=== PATIENT | female | born 1990 | race African-American/Black ===

== ENCOUNTER → 2016-05-10 | Outpatient (CLI) | payer OTHER | END | disposition home or self-care (01) | LOC: LABWHC1 10:29 | PROVIDERS: ATTEND Obstetrics & Gynecology | DX: O46.90 Antepartum hemorrhage, unspecified, unspecified trimester (principal) | CPT/HCPCS: 36415; 84702 ==

== ENCOUNTER → 2016-05-12 | Outpatient (CLI) | payer OTHER | END | disposition home or self-care (01) | LOC: LABWHC1 09:38 | PROVIDERS: ATTEND Obstetrics & Gynecology | DX: Z34.91 Encounter for supervision of normal pregnancy, unspecified, first trimester (principal); Z3A.00 Weeks of gestation of pregnancy not specified | CPT/HCPCS: 36415; 84702 ==

== ENCOUNTER → 2016-05-30 | Outpatient (CLI) | payer OTHER ==
--- NOTE | 2016-05-30 12:49 | US ---
EXAMINATION TYPE: US OB <= 14 wk fetus DATE OF EXAM: 05/30/2016 12:22 PM COMPARISON: NONE CLINICAL HISTORY: O46.91 Bleeding in first Trimester. EXAM PERFORMED: Transabdominal (TA) EXAM MEASUREMENTS: GESTATIONAL AGE / DATING Physician Established: not yet established Dates by LMP: ( 6 weeks/2 days) EDC: 04/16/16 Dates by First Scan: 1st scan today Dates by Current Scan for: (6 weeks/2 days) EDC: 04/16/16 MATERNAL ANATOMY Uterus: 9.3 x 6.1 x 5.8 Right Ovary: .3.0 x 2.4 x 2.7cm Left Ovary: 2.1 x 1.6 x 1.8 Post CDS / Adnexa: wnl Presence of free fluid: no GESTATION / CITRUS PICKER IMPRESSION: CRL: 4.5cm (6 weeks/2 days) Yolk Sac (normal less than 6mm): 3mm Heart Rate: 160 bpm Rhythm: Normal IUP: Viable IUP Date of LMP: 04/16/16 Beta HcG (if available): Not available IMPRESSION: 1. Single intrauterine gestation estimated at 6 weeks 2 days gestation. Cardiac activity measures 160 bpm.
== END | disposition home or self-care (01) ==
LOC: RADUSWWP 11:44
PROVIDERS: ATTEND Obstetrics & Gynecology
DX: O46.91 Antepartum hemorrhage, unspecified, first trimester (principal); Z3A.01 Less than 8 weeks gestation of pregnancy
CPT/HCPCS: 76801

== ENCOUNTER → 2017-01-10 | Outpatient (CLI) | payer OTHER | END | disposition home or self-care (01) | LOC: LABWHC1 12:20 | PROVIDERS: ATTEND Obstetrics & Gynecology | DX: Z34.90 Encounter for supervision of normal pregnancy, unspecified, unspecified trimester (principal); Z3A.00 Weeks of gestation of pregnancy not specified | CPT/HCPCS: 36415; 84702 ==

== ENCOUNTER → 2017-02-14 | Outpatient (CLI) | payer OTHER ==
[2017-02-14 10:20] LABS: HCT 42.8 % (34.0-46.0); HDW 2.43; MCHC 32.8 g/dL (31.0-37.0); MCV 97.4 fL (80.0-100.0); Mean Platelet Volume 7.8; RBC 4.39 m/uL (3.80-5.40); RDW 12.3 % (11.5-15.5); WBC 7.3 k/uL (3.8-10.6)
[2017-02-14 10:33] LABS: Glucose 129 mg/dL (74-99); Non-African American GFR(MDRD) >60 (>60 ml/min/1.73 sqM)
--- NOTE | 2017-02-14 11:35 | US ---
EXAMINATION TYPE: US OB <= 14 wk fetus DATE OF EXAM: 02/14/2017 COMPARISON: NONE CLINICAL HISTORY: Z36 CONFIRM DUE DATE. Confirm dates EXAM PERFORMED: Transabdominal (TA) EXAM MEASUREMENTS: GESTATIONAL AGE / DATING Physician Established: (9 weeks/0 days) EDC: 09/19/2017 Dates by LMP: (9 weeks/0 days) EDC: 09/19/2017 Dates by First Scan: This is 1st scan Dates by Current Scan for: ( 9 weeks/3 days) EDC: 09/16/2017 MATERNAL ANATOMY Uterus: 10.3 x 5.6 x 6.6cm, anteverted Right Ovary: 3.7 x 2.5 x 2.8cm Left Ovary: 3.3 x 1.3 x 1.7cm Post CDS / Adnexa: wnl Presence of free fluid: no Presence of corpus luteal cyst: right ovary: 2.3 x 2.0 x 1.7cm cystic area, possible corpus luteum Presence of subchorionic bleed: no GESTATION / SURVEY CRL: 2.6cm (9 weeks/3 days) Yolk Sac (normal less than 6mm): 4.3mm Heart Rate: 167 bpm Rhythm: Normal IUP: Viable IUP Date of LMP: 12/13/2016 Beta HcG (if available): Not available at time of exam Viable single IUP measuring 9 weeks 3 days with a heart rate of 167bpm and an estimated delivery date of 09/16/2017. Single live intrauterine gestation is seen as gestational sac, yolk sac, and pole are identifie d. No free fluid is seen in pelvic cul-de-sac. Both ovaries are identified. Within the right ovary there is 2.3 cm cystic lesion which likely reflec ts corpus luteal cyst. There is no suspicious extraovarian adnexal mass identified bilaterally. IMPRESSION: Single live intrauterine gestation is confirmed, mean crown-rump length is 2.6 cm corresp onding to 9 week 3 day old fetus.
[2017-02-14 15:18] LABS: Treponemal Ab Non-Reactive (Non-Reactive)
== END | disposition home or self-care (01) ==
LOC: RADUSWWP 09:47
PROVIDERS: ATTEND Obstetrics & Gynecology
DX: Z36.9 Encounter for antenatal screening, unspecified (principal); O26.811 Pregnancy related exhaustion and fatigue, first trimester; Z3A.09 9 weeks gestation of pregnancy
CPT/HCPCS: 36415; 76801; 82565; 82947; 85027; 86762; 86780; 86850; 86900; 86901; 87340; 87390

== ENCOUNTER 2017-03-30 23:39 | Emergency (ER) | payer OTHER ==
[2017-03-30 23:48] VITALS: BP 133/71; TEMP 97.8
--- NOTE | 2017-03-31 00:19 | ED ---
Female Urogenital HPI - General Chief complaint: Vaginal Bleeding Stated complaint: 15 weeks preg,vaginal bleeding Time Seen by Provider: 03/30/17 23:47 Source: patient, RN notes reviewed, old records reviewed Mode of arrival: ambulatory Limitations: no limitations - History of Present Illness Initial comments: 27-year-old male presents emergency Department with 1 day of vaginal spotting and bleeding. She reports that she is currently 15 weeks . Patient is a patient. PALLETIZER OPERATOR is Dr. Rowell. She had an appointment earlier this week and had a normal heart rate. Patient reports that she has no significant abdominal pain or cramping. She denies any dysuria or hematuria. Patient denies any recent fever, chills, shortness of breath, chest pain, back pain, abdominal pain, nausea vomiting, numbness or tingling, dysuria or hematuria, constipation or diarrhea, headaches or visual changes, or any other current symptoms - Related Data Home Medications Medication Instructions Recorded Confirmed No Known Home Medications [No 03/30/17 03/30/17 Known Home Medications] Allergies Allergy/AdvReac Type Severity Reaction Status Date / Time No Known Allergies Allergy Verified 03/15/16 10:01 Review of Systems ROS Statement: Those systems with pertinent positive or pertinent negative responses have been documented in the HPI. ROS Other: All systems not noted in ROS Statement are negative. Past Medical History Past Medical History: No Reported History Additional Past Medical History / Comment(s): recent miscarriage History of Any Multi-Drug Resistant Organisms: None Reported Past Surgical History: No Surgical Hx Reported Past Psychological History: ADD/ADHD Smoking Status: Never smoker Past Alcohol Use History: None Reported Past Drug Use History: None Reported General Exam - General Exam Comments Initial Comments: 27-year-old female. No distress. Limitations: no limitations General appearance: alert, in no apparent distress Head exam: Present: atraumatic, normocephalic, normal inspection Eye exam: Present: normal appearance, PERRL, EOMI. Absent: scleral icterus, conjunctival injection, periorbital swelling ENT exam: Present: normal exam, mucous membranes moist Neck exam: Present: normal inspection. Absent: tenderness, meningismus, lymphadenopathy Respiratory exam: Present: normal lung sounds bilaterally. Absent: respiratory distress, wheezes, rales, rhonchi, stridor Cardiovascular Exam: Present: regular rate, normal rhythm, normal heart sounds. Absent: systolic murmur, diastolic murmur, rubs, gallop, clicks GI/Abdominal exam: Present: soft, normal bowel sounds. Absent: distended, tenderness, guarding, rebound, rigid Speculum exam: Present: normal speculum exam, vaginal bleeding (Minimal vaginal bleeding noted.). Absent: vaginal discharge, cervical discharge By manual exam: Present: normal by manual exam. Absent: cervical motion tenderness, adnexal tenderness Extremities exam: Present: normal inspection, full ROM, normal capillary refill. Absent: tenderness, pedal edema, joint swelling, calf tenderness Course Vital Signs 03/30/17 03/31/17 23:44 02:29 Temperature 97.8 F Pulse Rate 114 H 100 Respiratory 20 18 Rate Blood Pressure 133/71 O2 Sat by Pulse 100 98 Oximetry Medical Decision Making - Medical Decision Making 27-year-old female that states she is 15 weeks presents emergency Department chief complaint of 1 day of vaginal bleeding. She reports she had some mild spotting. Denies any trauma or intercourse to cause this. She states that she's had a minor amount of discharge. Denies any dysuria or hematuria. Denies any significant abdominal cramping. She does have scant amount of bleeding noted, cervix is closed mucous plug noted. Patient is O+ blood type. HCG is 20,000. Patient was informed of all these results. Her ultrasound was also reviewed and shows a viable IUP measuring 16 weeks and 1 day. At this time discussed the patient could likely be having a threatened miscarriage. Discussed the importance of following up with 2 days of her lab work rechecked and checking her hCG level. Discussed close follow-up with primary care provider as well and return parameters including increased pain were discussed. Patient understands treatment plan will comply. - Lab Data Result diagrams: 03/31/17 00:30 Lab Results 03/31/17 03/31/17 03/31/17 Range/Units 00:30 00:30 00:30 WBC 8.5 (3.8-10.6) k/uL RBC 4.35 (3.80-5.40) m/uL Hgb 13.5 (11.4-16.0) gm/dL Hct 39.9 (34.0-46.0) % MCV 91.8 D (80.0-100.0) fL MCH 31.0 (25.0-35.0) pg MCHC 33.7 (31.0-37.0) g/dL RDW 12.1 (11.5-15.5) % Plt Count 193 (150-450) k/uL Neutrophils % 65 % Lymphocytes % 25 % Monocytes % 4 % Eosinophils % 3 % Basophils % 0 % Neutrophils # 5.6 (1.3-7.7) k/uL Lymphocytes # 2.2 (1.0-4.8) k/uL Monocytes # 0.4 (0-1.0) k/uL Eosinophils # 0.3 (0-0.7) k/uL Basophils # 0.0 (0-0.2) k/uL HCG, Quant mIU/mL Urine Color Light Yellow Urine Appearance Cloudy H (Clear) Urine pH 5.5 (5.0-8.0) Ur Specific Sarita 1.007 (1.001-1.035) Urine Protein Negative (Negative) Urine Glucose (UA) Negative (Negative) Urine Ketones Negative (Negative) Urine Blood Moderate H (Negative) Urine Nitrite Negative (Negative) Urine Bilirubin Negative (Negative) Urine Urobilinogen <2.0 (<2.0) mg/dL Ur Leukocyte Esterase Small H (Negative) Urine RBC <1 (0-5) /hpf Urine WBC 1 (0-5) /hpf Ur Squamous Epith Cells 3 (0-4) /hpf Trichomonas Ag (Rapid) (Negative) Blood Type O Positive Blood Type Recheck No Antibody Screen NEGATIVE Spec Expiration Date 04/03/2017 - 232903/31/17 03/31/17 Range/Units 00:30 00:30 WBC (3.8-10.6) k/uL RBC (3.80-5.40) m/uL Hgb (11.4-16.0) gm/dL Hct (34.0-46.0) % MCV (80.0-100.0) fL MCH (25.0-35.0) pg MCHC (31.0-37.0) g/dL RDW (11.5-15.5) % Plt Count (150-450) k/uL Neutrophils % % Lymphocytes % % Monocytes % % Eosinophils % % Basophils % % Neutrophils # (1.3-7.7) k/uL Lymphocytes # (1.0-4.8) k/uL Monocytes # (0-1.0) k/uL Eosinophils # (0-0.7) k/uL Basophils # (0-0.2) k/uL HCG, Quant 70259.8 mIU/mL Urine Color Urine Appearance (Clear) Urine pH (5.0-8.0) Ur Specific Sarita (1.001-1.035) Urine Protein (Negative) Urine Glucose (UA) (Negative) Urine Ketones (Negative) Urine Blood (Negative) Urine Nitrite (Negative) Urine Bilirubin (Negative) Urine Urobilinogen (<2.0) mg/dL Ur Leukocyte Esterase (Negative) Urine RBC (0-5) /hpf Urine WBC (0-5) /hpf Ur Squamous Epith Cells (0-4) /hpf Trichomonas Ag (Rapid) Negative (Negative) Blood Type Blood Type Recheck Antibody Screen Spec Expiration Date - Radiology Data Radiology results: report reviewed Ultrasound shows single viable IUP measuring 16 weeks and 1 day. Disposition Clinical Impression: Vaginal bleeding in Disposition: HOME SELF-CARE Condition: Good Instructions: Threatened Miscarriage (ED) Additional Instructions: Patient is to follow-up with outpatient lab today her blood work redrawn in 2 days. Follow-up with PALLETIZER OPERATOR. Return to emergency department if any alarming signs or symptoms occur. Recommended pelvic rest, no intercourse or severe heavy lifting or any other strenuous activity until cleared by PALLETIZER OPERATOR. Referrals: None,Stated [Primary Care Provider] - 1-2 days Ingris Rowell DO [Doctor of Osteopathic Medicine] - 1-2 days Time of Disposition: 01:53
[2017-03-31 00:52] LABS: Appearance,Urine Cloudy (Clear); Bilirubin,Urine Negative (Negative); Glucose,Urine (UA) Negative (Negative); Ketones,Urine Negative (Negative); Leukocyte Esterase,Urine Small (Negative); Nitrite,Urine Negative (Negative); PH, Urine 5.5 (5.0-8.0); Particle Count 5331; Protein,Urine Negative (Negative); RBC,Urine <1 /hpf (0-5); Specific Gravity,Urine 1.007 (1.001-1.035); Squamous Epithelial Cell,Urine 3 /hpf (0-4); UA Billing (MACRO vs. MICRO) MICRO; Urobilinogen,Urine <2.0 mg/dL (<2.0); WBC,Urine 1 /hpf (0-5)
[2017-03-31 00:57] LABS: Basophils % (A) 0 %; CH 32.2; CHCM 35.2; Eosinophils # (A) 0.3 k/uL (0-0.7); Eosinophils % (A) 3 %; HCT 39.9 % (34.0-46.0); HDW 2.71; HGB 13.5 gm/dL (11.4-16.0); Luc # (Auto) 0.16; Luc % (Auto) 2; Lymphocytes # (A) 2.2 k/uL (1.0-4.8); Lymphocytes % (A) 25 %; MCHC 33.7 g/dL (31.0-37.0); Mean Platelet Volume 7.9; Monocytes # (A) 0.4 k/uL (0-1.0); Monocytes % (A) 4 %; Neutrophils # (A) 5.6 k/uL (1.3-7.7); Neutrophils % (A) 65 %; RBC 4.35 m/uL (3.80-5.40); RDW 12.1 % (11.5-15.5); WBC 8.5 k/uL (3.8-10.6); WBC (Perox) 8.89
[2017-03-31 00:58] LABS: MCV 91.8 fL (80.0-100.0)
--- NOTE | 2017-03-31 01:37 | US ---
EXAM: US After First Trimester, Transabdominal US , Transvaginal CLINICAL HISTORY: Reason: Pain TECHNIQUE: Real-time transabdominal and endovaginal obstetrical ultrasound of the maternal pelvis and a second or third trimester with image documentation. Endovaginal imaging was used for better evaluation of the fetus and adnexa. COMPARISON: 02/14/2017 FINDINGS: Fetus: No acute findings, were visualized.. Limited characterization of the anatomy at this gestational age. Heart rate: heart rate 149 bpm. Presentation: presentation breech. Placenta: Placenta fundal anterior. No focal abnormality identified on the provided images. No abruption. Amniotic fluid: Amniotic fluid index 10.5 cm. Anatomy: Intracranial/face anatomy not seen. Spinal anatomy not seen. Abdominal anatomy not seen. Extremities not seen. Four-chamber heart not seen. Umbilical cord not seen. BIOMETRICS Gestational age by US: EFW: Estimated weight is grams 136.7. 0 lbs. 5 oz. BPD: Biparietal diameter 3.3 cm. HC: Head circumference 11.9 cm. AC: Abdominal circumference 9.8 cm. FL: Femur length 1.9 cm. MATERNAL: Uterus: Unremarkable. No myometrial mass. Cervix: Cervical length over 3 cm and closed. Free fluid: No free fluid. IMPRESSION: Live intrauterine gestation with estimated gestational age 16 weeks 1 day by ultrasound. No acute sonographic abnormalities identified.
[2017-03-31 02:30] VITALS: PULSE 100; RESP 18
== END 2017-03-31 02:29 | disposition home or self-care (01) ==
LOC: EC 23:39
DX: O20.9 Hemorrhage in early pregnancy, unspecified (principal); Z3A.16 16 weeks gestation of pregnancy
CPT/HCPCS: 36415; 76805; 76817; 81001; 84702; 85025; 86850; 86900; 86901; 87070; 87205; 87491; 87591; 87808; 99284

== ENCOUNTER → 2017-04-03 | Outpatient (CLI) | payer OTHER | END | disposition home or self-care (01) | LOC: LABWHC1 11:03 | PROVIDERS: ATTEND Physician Assistant Medical | DX: O20.0 Threatened abortion (principal) | CPT/HCPCS: 36415; 84702 ==

== ENCOUNTER → 2017-06-14 | Outpatient (CLI) | payer OTHER ==
[2017-06-14 09:18] LABS: HCT 37.9 % (34.0-46.0); HGB 12.6 gm/dL (11.4-16.0); MCH 31.6 pg (25.0-35.0); MCHC 33.2 g/dL (31.0-37.0); MCV 95.2 fL (80.0-100.0); Mean Platelet Volume 8.9; Platelet Count 190 k/uL (150-450); RBC 3.99 m/uL (3.80-5.40); RDW 13.2 % (11.5-15.5); WBC 8.9 k/uL (3.8-10.6)
== END | disposition home or self-care (01) ==
LOC: LABWHC1 07:52
PROVIDERS: ATTEND Obstetrics & Gynecology
DX: Z34.82 Encounter for supervision of other normal pregnancy, second trimester (principal); Z3A.00 Weeks of gestation of pregnancy not specified
CPT/HCPCS: 36415; 82950; 85027

== ENCOUNTER 2017-08-25 04:45 | Outpatient (CLI) | payer OTHER ==
[2017-08-25 05:22] VITALS: BP 125/65; PULSE 115; RESP 16; TEMP 97.6
--- NOTE | 2017-09-02 06:15 | P.MSEPDOC ---
Presenting Problems - Arrival Data Date of Arrival on Unit: 08/25/17 Time of Arrival on Unit: 04:47 Mode of Transport: Wheelchair - Complaint OB-Reason for Admission/Chief Complaint: Possible Onset of Labor Comment: pt states she has been fela on and off over the last day. states they are now 4-5 minutes apart and rates them 8/10 Medical History - Information : 4 Para: 1 Term: 1 : 0 Abortions: Spontaneous or Elective: 0 Number of Living Children: 1 - Gestational Age Gestational Age by RUTH (wks/days): 36 Weeks and 3 Days - History Complications: GDM Review of Systems - Review of Systems Constitutional: No problems Breast: No problems ENT: No problems Cardiovascular: No problems Respiratory: No problems Gastrointestinal: No problems Genitourinary: No problems Musculoskeletal: No problems Neurological: No problems Skin: No problems Vital Signs - Temperature Temperature: 97.6 F Temperature Source: Temporal Artery Scan - Pulse Right Sitting Brachial Pulse Rate: 115 Pulse Assessment Method: Automatic Cuff - Respirations Respiratory Rate: 16 Oxygen Delivery Method: Room Air O2 Sat by Pulse Oximetry: 100 - Blood Pressure Right Arm Sitting Blood Pressure: 125/65 Blood Pressure Mean: 85 Blood Pressure Source: Automatic Cuff Medical Screen Scoring (Pre) - Cervical Exam Dilation: 1-3 cm = 1 Effacement: More than 50% = 2 Membranes: Intact - Uterine Contractions Frequency: > 5 minutes apart = 1 Duration: > 40 seconds = 2 Intensity: N/A - Maternal Vital Signs Maternal Temperature: N/A Maternal Blood Pressure: N/A Signs of Preeclampsia: N/A - Pain Assessment Pain Location and Character: Lower, Abdomen Pain Scale Used: Numeric (1 - 10) Pain Intensity: 8 Pain Management Goal: 3 Pain Description: *Acute, Cramping Pain Radiation Location: lower back Pain Frequency: Intermittent Pain Duration: 1 Pain Duration Units: Days Pain Behavior: Facial Grimacing, Vocalization - Assessment Baseline FHR: 140 Heart Rate - NICHD Category: Category I (Normal) = 0 NST: Reactive - Total Score Total Score (Pre): 6 - Level of Risk Level of Risk: Medium (6-9) Physician Notification (Post) - Physician Notified Physician Notified Date: 08/25/17 Physician Notified Time: 06:11 Physician/Practitioner Notified:: natalie Spoke With: natalie New Order Received: Yes - Notification Comment Comment: d/c pt home, instruct pt to keep apt this morning with dr moncada Disposition - Disposition OB Disposition: Discharge to home Discharge Date: 08/25/17 Discharge Time: 06:20 I agree with the RN Medical Screening Exam: Yes Risk & Benefit of care provided described in d/c instruction: Yes Diagnosis: FALSE LABOR BEFORE 37 COMPLETED WEEKS OF GEST, THIRD TRI
== END 2017-08-25 06:20 | disposition home or self-care (01) ==
LOC: FBPOP 04:45
PROVIDERS: ATTEND Obstetrics & Gynecology
DX: O99.89 Other specified diseases and conditions complicating pregnancy, childbirth and the puerperium (principal); O47.03 False labor before 37 completed weeks of gestation, third trimester; Z3A.36 36 weeks gestation of pregnancy
CPT/HCPCS: 59025; G0463; 99213

== ENCOUNTER 2017-09-14 06:00 | Inpatient (IN) | payer OTHER ==
[2017-09-14] MEDS ORDERED: METHYLERGONOVINE 0.2 MG/ML 1 ML AMP IM PRN (06:29)
[2017-09-14] MEDS ORDERED: LIDOCAINE 1% (PF) 10 MG/ML (30 ML SDV) SQ PRN (06:29)
[2017-09-14] MEDS ORDERED: AMPICILLIN 2,000 MG in SODIUM CHLORIDE 0.9% 100 ML IVPB STA (06:29)
[2017-09-14] MEDS ORDERED: TERBUTALINE 1 MG/ML VIAL SQ PRN (06:29)
[2017-09-14] MEDS ORDERED: OXYTOCIN 10 UNIT/ML 1 ML VIAL IM PRN (06:29)
[2017-09-14] MEDS ORDERED: CARBOPROST TROMETHAMINE 250 MCG/ML 1 ML AMP IM PRN (06:29)
[2017-09-14] MEDS ORDERED: OXYTOCIN 20 UNITS/1000 ML NS 1,000 ML IV SCH (06:30)
[2017-09-14 06:39] VITALS: BMI 37.3
[2017-09-14] MEDS: LACTATED RINGERS 1,000 ML IV SCH (06:44)
[2017-09-14 06:50] LABS: Glucose,Whole Blood 77 mg/dL (75-99)
[2017-09-14 06:51] LABS: Basophils % (A) 0 %; Eosinophils # (A) 0.2 k/uL (0-0.7); Eosinophils % (A) 2 %; HCT 38.2 % (34.0-46.0); HGB 13.1 gm/dL (11.4-16.0); Lymphocytes # (A) 2.4 k/uL (1.0-4.8); Lymphocytes % (A) 29 %; MCH 30.8 pg (25.0-35.0); MCHC 34.4 g/dL (31.0-37.0); MCV 89.6 fL (80.0-100.0); Mean Platelet Volume 9.5; Monocytes # (A) 0.4 k/uL (0-1.0); Monocytes % (A) 6 %; Neutrophils # (A) 4.9 k/uL (1.3-7.7); Neutrophils % (A) 61 %; Platelet Count 194 k/uL (150-450); RBC 4.27 m/uL (3.80-5.40); RDW 13.4 % (11.5-15.5)
--- NOTE | 2017-09-14 08:05 | P.HPOB ---
History of Present Illness H&P Date: 09/14/17 Chief Complaint: Induction of Labor 27-year-old presents at 39 weeks and 1 day for induction of labor. Her cervix is 3-4 cm dilated, 80% effaced, -2 station. She is fela irregularly. heart tones are 145-150 with moderate variability and reactive. She does have gestational diabetes and her sugar this morning was 77. Review of Systems All systems: negative Constitutional: Denies chills, Denies fever Eyes: denies blurred vision, denies pain Ears, nose, mouth and throat: Denies headache, Denies sore throat Cardiovascular: Denies chest pain, Denies shortness of breath Respiratory: Denies cough Gastrointestinal: Denies abdominal pain, Denies diarrhea, Denies nausea, Denies vomiting Genitourinary: Denies dysuria, Denies hematuria Musculoskeletal: Denies myalgias Integumentary: Denies pruritus, Denies rash Neurological: Denies numbness, Denies weakness Psychiatric: Denies anxiety, Denies depression Endocrine: Denies fatigue, Denies weight change Past Medical History Past Medical History: No Reported History Additional Past Medical History / Comment(s): Obstetric History: She has had one vaginal delivery 5 lbs. 8 oz., 2 elective terminations, this is her fourth . She's had care with me since 7 weeks gestation. Blood type is O+, antibodies negative, rubella immune, treponema antibody negative, HIV nonreactive, hepatitis B negative. Abnormal 1 hour, she refused to do the 3 hour so she checks her blood sugar for 2 weeks and they were not within normal limits when she went to the maternal medicine the diagnosed with gestational diabetes and had her checking her blood sugars and following a diet. She was GBS positive. NSTs have been reactive. Baby was measuring in the 50th percentile at 35 weeks. History of Any Multi-Drug Resistant Organisms: None Reported Past Surgical History: No Surgical Hx Reported Past Anesthesia/Blood Transfusion Reactions: No Reported Reaction Past Psychological History: ADD/ADHD Smoking Status: Never smoker Past Alcohol Use History: None Reported Past Drug Use History: None Reported - Past Family History Father Family Medical History: Diabetes Mellitus Mother Family Medical History: Asthma, Blood Disorder, Hypertension Medications and Allergies Home Medications Medication Instructions Recorded Confirmed Type No Known Home Medications [No 03/30/17 09/14/17 History Known Home Medications] Allergies Allergy/AdvReac Type Severity Reaction Status Date / Time No Known Allergies Allergy Verified 09/14/17 06:29 Exam Osteopathic Statement: *. No significant issues noted on an osteopathic structural exam other than those noted in the History and Physical/Consult. - Vital Signs Vital signs: Vital Signs Temp Pulse Resp BP 09/14/17 06:32 96.2 F L 115 H 16 142/82 Intake and Output 09/13/17 09/14/17 09/14/17 22:59 06:59 14:59 Other: Weight 92.533 kg Heart: Regular rate and rhythm Lungs: Clear to auscultation bilaterally Abdomen: Soft, nontender Extremities: Negative Homans sign Results Result Diagrams: 09/14/17 06:25 Assessment and Plan (1) Normal labor Current Visit: Yes Status: Acute Code(s): O80 - ENCOUNTER FOR FULL-TERM UNCOMPLICATED DELIVERY; Z37.9 - OUTCOME OF DELIVERY, UNSPECIFIED SNOMED Code(s ): 26433140 (2) Gestational diabetes mellitus, class A1 Current Visit: Yes Status: Acute Code(s): O24.410 - GESTATIONAL DIABETES MELLITUS IN , DIET CONTROLLED SNOMED Code(s): 73250407 Plan: 1. Admit to family place 2. Induction of labor with amniotomy and Pitocin 3. Monitor blood sugars 4. Anticipate normal vaginal delivery
[2017-09-14 08:51] LABS: Glucose,Whole Blood 79 mg/dL (75-99)
[2017-09-14] MEDS ORDERED: SODIUM CHLORIDE 0.9% 100 ML BAG ONE (08:56)
[2017-09-14] MEDS ORDERED: BUPIVACAINE (PF) 0.25% 30 ML VIAL ONE (08:56)
[2017-09-14] MEDS ORDERED: fentaNYL (PF) 50 MCG/ML 5 ML AMP ONE (08:56)
[2017-09-14 09:54] LABS: Glucose,Whole Blood 67 mg/dL (75-99)
[2017-09-14] MEDS ORDERED: AMPICILLIN 1,000 MG in SODIUM CHLORIDE 0.9% 50 ML IVPB SCH (11:00)
[2017-09-14] MEDS ORDERED: BUPIVACAINE (PF) 0.25% 25 ML, fentaNYL (PF) 200 MCG in SODIUM CHLORIDE 0.9% 71 ML EPIDURAL ONE (12:05)
[2017-09-14] MEDS ORDERED: ZOLPIDEM 5 MG TAB PO PRN (17:46)
[2017-09-14] MEDS ORDERED: ACETAMINOPHEN TAB 325 MG TAB PO PRN (17:46)
[2017-09-14] MEDS ORDERED: LANOLIN CREAM 5 GM TUBE TOPICAL PRN (17:46)
[2017-09-14] MEDS ORDERED: diphenhydrAMINE 50 MG CAP PO PRN (17:46)
[2017-09-14] MEDS ORDERED: BENZOCAINE/MENTHOL SPRAY 1 GM/SPRAY AEROSOL TOPICAL PRN (17:46)
[2017-09-14] MEDS ORDERED: diphenhydrAMINE 25 MG CAP PO PRN (17:46)
[2017-09-14] MEDS ORDERED: HYDROCORTISONE 2.5% RECTAL CREAM 30 GM TUBE RECTAL PRN (17:46)
[2017-09-14] MEDS ORDERED: SIMETHICONE 80 MG CHEWABLE PO PRN (17:46)
[2017-09-14] MEDS ORDERED: WITCH HAZEL 1 EACH MED..PAD TOPICAL PRN (17:46)
[2017-09-14] MEDS: IBUPROFEN 600 MG TAB PO PRN (18:27)
[2017-09-14] MEDS: SENNOSIDES-DOCUSATE SODIUM 1 EACH TAB PO SCH (20:15)
[2017-09-15] MEDS: IBUPROFEN 600 MG TAB PO PRN ×4 (00:48→18:45)
--- NOTE | 2017-09-15 08:11 | P.PROBDLV ---
Vaginal Delivery Note - . Vaginal Delivery Note: 27-year-old presented at 39 weeks and 1 day for induction of labor. She was 3 cm dilated, 80% effaced, -2 station. Gabby irregularly. heart tones 140-145 with moderate variability and reactive. Amniotomy was performed at 7:50 AM and clear fluid noted. Pitocin 100 and started. Soon after this she did get an epidural. Her cervix completed dilated at 10:24 AM. She pushed, delivered a viable female over intact perineum under epidural anesthesia at 10:32 AM. Head delivered OA, nuchal cord 1 easily reduced, anterior shoulder delivered with gentle downward traction followed by posterior shoulder and rest of body. Nose and mouth bulb suctioned, cord clamped and cut, infant placed on mother's abdomen. Apgars 9, 9, weight 6 lbs. 6 oz. Placenta delivered spontaneously, intact with three-vessel cord. Vagina , cervix, perineum were inspected. First-degree midline laceration was repaired with 3-0 Vicryl. Estimated blood loss 150 mL.
[2017-09-15] MEDS: LACTATED RINGERS 1,000 ML IV SCH (10:32)
[2017-09-15] MEDS: SENNOSIDES-DOCUSATE SODIUM 1 EACH TAB PO SCH ×2 (10:34→21:23)
--- NOTE | 2017-09-15 16:48 | P.PNOBGVD ---
Subjective - Subjective Principal diagnosis: S/P NVD PPD #1 Interval history: Pt seen and examined. Denies N/V, F/C, CP, SOB or calf pain. Patient reports: Reports appetite normal, Reports voiding normally, Reports pain well controlled, Reports ambulating normally : doing well Objective - Latest Vital Signs Latest vital signs: Vital Signs Temp Pulse Pulse Resp BP 09/15/17 15:40 97.8 F 96 16 124/76 09/15/17 07:52 97.7 F 84 16 139/75 09/14/17 20:00 98.8 F 84 18 121/62 09/14/17 17:00 98.6 F 97 20 129/64 Intake and Output 09/15/17 09/15/17 09/15/17 06:59 14:59 22:59 Other: # Voids 4 - Exam Lungs: bilateral: normal Chest: Normal S1, Normal S2 Extremities: Present: normal Abdomen: Present: normal appearance, soft Uterus: Present: normal, firm Assessment and Plan (1) Normal labor Current Visit: Yes Status: Resolved Code(s): O80 - ENCOUNTER FOR FULL-TERM UNCOMPLICATED DELIVERY; Z37.9 - OUTCOME OF DELIVERY, UNSPECIFIED SNOMED Code(s ): 25094620 (2) Gestational diabetes mellitus, class A1 Current Visit: Yes Status: Resolved Code(s): O24.410 - GESTATIONAL DIABETES MELLITUS IN , DIET CONTROLLED SNOMED Code(s): 91177874 (3) Normal vaginal delivery Current Visit: Yes Status: Acute Code(s): O80 - ENCOUNTER FOR FULL-TERM UNCOMPLICATED DELIVERY SNOMED Code(s): 97281391 Plan: 1. cont pp care
[2017-09-16] MEDS: IBUPROFEN 600 MG TAB PO PRN ×2 (00:42→08:38)
[2017-09-16] MEDS: SENNOSIDES-DOCUSATE SODIUM 1 EACH TAB PO SCH (08:40)
[2017-09-16 08:50] VITALS: BP 122/77; PULSE 90; RESP 18; TEMP 97.4
--- NOTE | 2017-09-16 11:37 | P.DS ---
Providers Date of admission: 09/14/17 06:06 Expected date of discharge: 09/16/17 Attending physician: Ingris Rowell Primary care physician: Stated None - Discharge Diagnosis(es) (1) Normal labor Current Visit: Yes Status: Resolved (2) Gestational diabetes mellitus, class A1 Current Visit: Yes Status: Resolved (3) Normal vaginal delivery Current Visit: Yes Status: Acute Hospital Course: Patient presented for induction of labor. She underwent a normal vaginal delivery. Her course was uncomplicated. She will be discharged home day #2 in stable condition to follow-up with me in 6 weeks. Plan - Discharge Summary New Discharge Prescriptions: New Ibuprofen 800 mg PO Q8H PRN #60 tablet PRN Reason: Pain Discharge Medication List Ibuprofen 800 mg PO Q8H PRN #60 tablet 09/15/17 [Rx] Follow up Appointment(s)/Referral(s): Ingris Rowell DO [Doctor of Osteopathic Medicine] - 6 Weeks Discharge Disposition: HOME SELF-CARE
== END 2017-09-16 14:37 | disposition home or self-care (01) | DRG 775 ==
LOC: 4FBP 06:06
PROVIDERS: ADMIT Obstetrics & Gynecology; ATTEND Obstetrics & Gynecology
PROC: 10E0XZZ Delivery of Products of Conception, External Approach (ICD-10-PCS; principal; 2017-09-14)
PROC: 0HQ9XZZ Repair Perineum Skin, External Approach (ICD-10-PCS; 2017-09-14)
PROC: 10907ZC Drainage of Amniotic Fluid, Therapeutic from Products of Conception, Via Natural or Artificial Opening (ICD-10-PCS; 2017-09-14)
PROC: 3E033VJ Introduction of Other Hormone into Peripheral Vein, Percutaneous Approach (ICD-10-PCS; 2017-09-14)
DX: O24.420 Gestational diabetes mellitus in childbirth, diet controlled (principal); O70.0 First degree perineal laceration during delivery; O69.81X0 Labor and delivery complicated by cord around neck, without compression, not applicable or unspecified; O99.824 Streptococcus B carrier state complicating childbirth; Z3A.39 39 weeks gestation of pregnancy; Z83.3 Family history of diabetes mellitus; Z37.0 Single live birth; Z82.5 Family history of asthma and other chronic lower respiratory diseases; Z82.49 Family history of ischemic heart disease and other diseases of the circulatory system
CPT/HCPCS: 85025; 88307

== ENCOUNTER 2018-07-12 14:49 | Emergency (ER) | payer OTHER ==
[2018-07-12] MEDS ORDERED: ACETAMINOPHEN TAB 325 MG TAB PO STA (15:12)
[2018-07-12] MEDS ORDERED: SODIUM CHLORIDE 0.9% 1,000 ML IV STA (15:12)
--- NOTE | 2018-07-12 15:51 | ED ---
General Adult HPI - General Chief complaint: Recheck/Abnormal Lab/Rx Stated complaint: Weakness, hypertension Time Seen by Provider: 07/12/18 14:59 Source: patient, RN notes reviewed, old records reviewed Mode of arrival: ambulatory Limitations: no limitations - History of Present Illness Initial comments: 28-year-old female presented for evaluation of flulike symptoms, concern for dehydration. Patient was diagnosed by nasal swab with influenza a 2 days ago. She had several days of symptoms preceding this diagnosis. She was prescribed Tamiflu but had some difficulty with nausea vomiting after taking this medication so she did not complete her course. She has had decreased appetite, decreased oral intake. She is also had mild cough and chest pain associated with her cough. Denies current fever or chills. Denies abdominal pain nausea or vomiting denies dysuria or hematuria. - Related Data Previous Rx's Medication Instructions Recorded Ibuprofen 800 mg PO Q8H PRN #60 tablet 09/15/17 Allergies Allergy/AdvReac Type Severity Reaction Status Date / Time No Known Allergies Allergy Verified 07/12/18 16:41 Review of Systems ROS Statement: Those systems with pertinent positive or pertinent negative responses have been documented in the HPI. ROS Other: All systems not noted in ROS Statement are negative. Past Medical History Past Medical History: No Reported History Additional Past Medical History / Comment(s): Obstetric History: She has had one vaginal delivery 5 lbs. 8 oz., 2 elective terminations, this is her fourth . She's had care with me since 7 weeks gestation. Blood type is O+, antibodies negative, rubella immune, treponema antibody negative, HIV nonreactive, hepatitis B negative. Abnormal 1 hour, she refused to do the 3 hour so she checks her blood sugar for 2 weeks and they were not within normal limits when she went to the maternal medicine the diagnosed with gestational diabetes and had her checking her blood sugars and following a diet. She was GBS positive. NSTs have been reactive. Baby was measuring in the 50th percentile at 35 weeks. History of Any Multi-Drug Resistant Organisms: None Reported Past Surgical History: No Surgical Hx Reported Past Anesthesia/Blood Transfusion Reactions: No Reported Reaction Past Psychological History: ADD/ADHD Smoking Status: Never smoker Past Alcohol Use History: None Reported Past Drug Use History: None Reported - Past Family History Father Family Medical History: Diabetes Mellitus Mother Family Medical History: Asthma, Blood Disorder, Hypertension General Exam Limitations: no limitations General appearance: alert, in no apparent distress Head exam: Present: atraumatic, normocephalic Eye exam: Present: normal appearance, PERRL ENT exam: Present: mucous membranes dry Neck exam: Present: normal inspection. Absent: tenderness, meningismus Respiratory exam: Present: normal lung sounds bilaterally. Absent: respiratory distress, wheezes Cardiovascular Exam: Present: regular rate, normal rhythm GI/Abdominal exam: Present: soft. Absent: distended, tenderness Extremities exam: Present: normal inspection, normal capillary refill Neurological exam: Present: alert, oriented X3, CN II-XII intact. Absent: motor sensory deficit Psychiatric exam: Present: normal affect, normal mood Skin exam: Present: warm, dry, intact. Absent: cyanosis, diaphoretic Course Vital Signs 07/12/18 07/12/18 14:53 15:38 Temperature 98.2 F Pulse Rate 97 Respiratory 18 20 Rate Blood Pressure 115/69 O2 Sat by Pulse 100 Oximetry Medical Decision Making - Medical Decision Making 28-year-old female recent diagnosis of influenza presenting with dehydration, decreased appetite, flulike symptoms. Workup in the emergency department reveals normal chest x-ray, negative for focal pneumonia, she does have some leukopenia with total white blood cell count 2.5 likely viral but will require repeat testing. Hemoglobin 16.2 lactic acid normal, normal electrolytes. Mild transaminitis with AST 48, ALT 67, may be viral in nature, or may be secondary to patient large consumption of-" syrup and possible fatty liver. Urinalysis negative for infection, does show 1+ ketones. Patient receives Tylenol, 2 L of IV hydration, on reevaluation she is feeling better. She will follow-up with her primary care physician regarding repeat laboratory testing - Lab Data Result diagrams: 07/12/18 15:30 07/12/18 15:30 Lab Results 07/12/18 07/12/18 07/12/18 Range/Units 15:30 15:30 15:30 WBC 2.5 L (3.8-10.6) k/uL RBC 5.24 (3.80-5.40) m/uL Hgb 16.2 H (11.4-16.0) gm/dL Hct 49.5 H (34.0-46.0) % MCV 94.4 (80.0-100.0) fL MCH 30.8 (25.0-35.0) pg MCHC 32.6 (31.0-37.0) g/dL RDW 12.5 (11.5-15.5) % Plt Count 234 (150-450) k/uL Neutrophils % 46 % Lymphocytes % 35 % Monocytes % 12 % Eosinophils % 4 % Basophils % 1 % Neutrophils # 1.2 L (1.3-7.7) k/uL Lymphocytes # 0.9 L (1.0-4.8) k/uL Monocytes # 0.3 (0-1.0) k/uL Eosinophils # 0.1 (0-0.7) k/uL Basophils # 0.0 (0-0.2) k/uL Sodium 141 (137-145) mmol/L Potassium 4.0 (3.5-5.1) mmol/L Chloride 107 (98-107) mmol/L Carbon Dioxide 21 L (22-30) mmol/L Anion Gap 13 mmol/L BUN 8 (7-17) mg/dL Creatinine 0.90 (0.52-1.04) mg/dL Est GFR (CKD-EPI)AfAm >90 (>60 ml/min/1.73 sqM) Est GFR (CKD-EPI)NonAf 89 (>60 ml/min/1.73 sqM) Glucose 91 (74-99) mg/dL Plasma Lactic Acid Dannie 1.3 (0.7-2.0) mmol/L Calcium 9.6 (8.4-10.2) mg/dL Total Bilirubin 0.6 (0.2-1.3) mg/dL AST 48 H (14-36) U/L ALT 67 H (9-52) U/L Alkaline Phosphatase 77 (38-126) U/L Total Protein 8.7 H (6.3-8.2) g/dL Albumin 4.8 (3.5-5.0) g/dL Urine Color Urine Appearance (Clear) Urine pH (5.0-8.0) Ur Specific [place] (1.001-1.035) Urine Protein (Negative) Urine Glucose (UA) (Negative) Urine Ketones (Negative) Urine Blood (Negative) Urine Nitrite (Negative) Urine Bilirubin (Negative) Urine Urobilinogen (<2.0) mg/dL Ur Leukocyte Esterase (Negative) Urine RBC (0-5) /hpf Urine WBC (0-5) /hpf Ur Squamous Epith Cells (0-4) /hpf Amorphous Sediment (None) /hpf Hyaline Casts (0-2) /lpf Urine Mucus (None) /hpf Urine HCG, Qual (Not Detectd) 07/12/18 07/12/18 Range/Units 15:30 15:30 WBC (3.8-10.6) k/uL RBC (3.80-5.40) m/uL Hgb (11.4-16.0) gm/dL Hct (34.0-46.0) % MCV (80.0-100.0) fL MCH (25.0-35.0) pg MCHC (31.0-37.0) g/dL RDW (11.5-15.5) % Plt Count (150-450) k/uL Neutrophils % % Lymphocytes % % Monocytes % % Eosinophils % % Basophils % % Neutrophils # (1.3-7.7) k/uL Lymphocytes # (1.0-4.8) k/uL Monocytes # (0-1.0) k/uL Eosinophils # (0-0.7) k/uL Basophils # (0-0.2) k/uL Sodium (137-145) mmol/L Potassium (3.5-5.1) mmol/L Chloride (98-107) mmol/L Carbon Dioxide (22-30) mmol/L Anion Gap mmol/L BUN (7-17) mg/dL Creatinine (0.52-1.04) mg/dL Est GFR (CKD-EPI)AfAm (>60 ml/min/1.73 sqM) Est GFR (CKD-EPI)NonAf (>60 ml/min/1.73 sqM) Glucose (74-99) mg/dL Plasma Lactic Acid Dannie (0.7-2.0) mmol/L Calcium (8.4-10.2) mg/dL Total Bilirubin (0.2-1.3) mg/dL AST (14-36) U/L ALT (9-52) U/L Alkaline Phosphatase (38-126) U/L Total Protein (6.3-8.2) g/dL Albumin (3.5-5.0) g/dL Urine Color Yellow Urine Appearance Cloudy H (Clear) Urine pH 5.5 (5.0-8.0) Ur Specific [place] 1.022 (1.001-1.035) Urine Protein 2+ H (Negative) Urine Glucose (UA) Negative (Negative) Urine Ketones 1+ H (Negative) Urine Blood Small H (Negative) Urine Nitrite Negative (Negative) Urine Bilirubin Negative (Negative) Urine Urobilinogen 4.0 (<2.0) mg/dL Ur Leukocyte Esterase Negative (Negative) Urine RBC 4 (0-5) /hpf Urine WBC 3 (0-5) /hpf Ur Squamous Epith Cells 8 H (0-4) /hpf Amorphous Sediment Occasional H (None) /hpf Hyaline Casts 16 H (0-2) /lpf Urine Mucus Occasional H (None) /hpf Urine HCG, Qual Not Detected (Not Detectd) Disposition Clinical Impression: Dehydration, Influenza, Transaminitis Disposition: HOME SELF-CARE Condition: Good Instructions (If sedation given, give patient instructions): Influenza (DC), Dehydration (ED) Additional Instructions: Please follow up with primary care physician regarding low white count and elevated AST and ALT. Please have repeat laboratory testing in the next 2 weeks. Is patient prescribed a controlled substance at d/c from ED?: No Referrals: Maurilio Rowland MD [Primary Care Provider] - 1-2 days Time of Disposition: 17:08
[2018-07-12 15:56] LABS: Amorphous Sediment,Urine Occasional /hpf; Appearance,Urine Cloudy (Clear); Bilirubin,Urine Negative (Negative); Blood,Urine Small (Negative); Color,Urine Yellow; Glucose,Urine (UA) Negative (Negative); Hyaline Casts,Urine 16 /lpf (0-2); Ketones,Urine 1+ (Negative); Leukocyte Esterase,Urine Negative (Negative); Mucus,Urine Occasional /hpf; Nitrite,Urine Negative (Negative); PH, Urine 5.5 (5.0-8.0); Protein,Urine 2+ (Negative); RBC,Urine 4 /hpf (0-5); Specific Gravity,Urine 1.022 (1.001-1.035); Squamous Epithelial Cell,Urine 8 /hpf (0-4); WBC,Urine 3 /hpf (0-5)
--- NOTE | 2018-07-12 16:04 | XR ---
EXAMINATION TYPE: XR chest 2V DATE OF EXAM: 07/12/2018 COMPARISON: 07/27/2015 HISTORY: Weakness and hypertension TECHNIQUE: Frontal and lateral views of the chest are obtained. FINDINGS: There is no focal air space opacity, pleural effusion, or pneumothorax seen. The cardiac silhouette size is within normal limits. The osseous structures are intact. IMPRESSION: No acute cardiopulmonary process.
[2018-07-12 16:09] LABS: Basophils % (A) 1 %; Eosinophils # (A) 0.1 k/uL (0-0.7); Eosinophils % (A) 4 %; HCT 49.5 % (34.0-46.0); HGB 16.2 gm/dL (11.4-16.0); Lymphocytes # (A) 0.9 k/uL (1.0-4.8); Lymphocytes % (A) 35 %; MCH 30.8 pg (25.0-35.0); MCHC 32.6 g/dL (31.0-37.0); MCV 94.4 fL (80.0-100.0); Mean Platelet Volume 8.2; Monocytes # (A) 0.3 k/uL (0-1.0); Monocytes % (A) 12 %; Neutrophils # (A) 1.2 k/uL (1.3-7.7); Neutrophils % (A) 46 %; Platelet Count 234 k/uL (150-450); RBC 5.24 m/uL (3.80-5.40); RDW 12.5 % (11.5-15.5); WBC 2.5 k/uL (3.8-10.6)
[2018-07-12] MEDS ORDERED: SODIUM CHLORIDE 0.9% 1,000 ML IV ONE (16:30)
[2018-07-12 16:52] LABS: ALT 67 U/L (9-52); AST 48 U/L (14-36); Albumin 4.8 g/dL (3.5-5.0); Alkaline Phosphatase 77 U/L (38-126); Anion Gap 13 mmol/L; Blood Urea Nitrogen 8 mg/dL (7-17); Calcium 9.6 mg/dL (8.4-10.2); Carbon Dioxide 21 mmol/L (22-30); Chloride 107 mmol/L (98-107); Glucose 91 mg/dL (74-99); Sodium 141 mmol/L (137-145); Total Bilirubin 0.6 mg/dL (0.2-1.3); Total Protein 8.7 g/dL (6.3-8.2)
[2018-07-12 18:05] VITALS: BP 120/77; PULSE 73; RESP 18; TEMP 98.9
== END 2018-07-12 18:04 | disposition home or self-care (01) ==
LOC: EC 14:49
DX: E86.0 Dehydration (principal); J11.1 Influenza due to unidentified influenza virus with other respiratory manifestations; R74.0 Nonspecific elevation of levels of transaminase and lactic acid dehydrogenase [LDH]; D72.819 Decreased white blood cell count, unspecified; R11.2 Nausea with vomiting, unspecified; Z53.29 Procedure and treatment not carried out because of patient's decision for other reasons
CPT/HCPCS: 36415; 71046; 80053; 81001; 81025; 83605; 85025; 96360; 96361; 99285

== ENCOUNTER 2018-07-13 15:12 | Emergency (ER) | payer OTHER ==
[2018-07-13] MEDS ORDERED: MECLIZINE 12.5 MG TAB PO STA (15:47)
[2018-07-13 16:22] LABS: HCT 44.6 % (34.0-46.0); HGB 14.7 gm/dL (11.4-16.0); MCH 30.9 pg (25.0-35.0); MCHC 32.9 g/dL (31.0-37.0); Mean Platelet Volume 7.8; Platelet Count 216 k/uL (150-450); RBC 4.74 m/uL (3.80-5.40); RDW 12.5 % (11.5-15.5); WBC 2.7 k/uL (3.8-10.6)
--- NOTE | 2018-07-13 16:24 | ED ---
Recheck HPI - General Chief Complaint: Recheck/Abnormal Lab/Rx Stated Complaint: Lightheaded,dizzy Time Seen by Provider: 07/13/18 15:38 Source: patient, RN notes reviewed Mode of arrival: ambulatory Limitations: no limitations - History of Present Illness Initial Comments: 28-year-old female presents emergency Department for recheck of ongoing dizzines s, upset stomach, fatigue. Patient was seen in emergency department yesterday had complete workup with mild transaminitis findings. Patient had recent positive influenza testing. Patient states that she felt improved after IV fluids yesterday. Patient states she is concerned that she's dehydrated again because she has not been eating. Patient denies any diarrhea, constipation. She has no dysuria hematuria. Patient denies any chance . She did have a negative test yesterday. Patient is 7 months . Patient offers no complaint - Related Data Previous Rx's Medication Instructions Recorded Ibuprofen 800 mg PO Q8H PRN #60 tablet 09/15/17 Meclizine [Antivert] 25 mg PO TID PRN #15 tab 07/13/18 Ondansetron Odt [Zofran Odt] 4 mg PO Q8HR PRN #10 tab 07/13/18 Allergies Allergy/AdvReac Type Severity Reaction Status Date / Time No Known Allergies Allergy Verified 07/13/18 15:56 Review of Systems ROS Statement: Those systems with pertinent positive or pertinent negative responses have been documented in the HPI. ROS Other: All systems not noted in ROS Statement are negative. Past Medical History Past Medical History: No Reported History Additional Past Medical History / Comment(s): Obstetric History: She has had one vaginal delivery 5 lbs. 8 oz., 2 elective terminations, this is her fourth . She's had care with sc since 7 weeks gestation. Blood type is O+, antibodies negative, rubella immune, treponema antibody negative, HIV nonreactive, hepatitis B negative. Abnormal 1 hour, she refused to do the 3 hour so she checks her blood sugar for 2 weeks and they were not within normal limits when she went to the maternal medicine the diagnosed with gestational diabetes and had her checking her blood sugars and following a diet. She was GBS positive. NSTs have been reactive. Baby was measuring in the 50th percentile at 35 weeks. History of Any Multi-Drug Resistant Organisms: None Reported Past Surgical History: No Surgical Hx Reported Past Anesthesia/Blood Transfusion Reactions: No Reported Reaction Past Psychological History: ADD/ADHD Smoking Status: Never smoker Past Alcohol Use History: None Reported Past Drug Use History: None Reported - Past Family History Father Family Medical History: Diabetes Mellitus Mother Family Medical History: Asthma, Blood Disorder, Hypertension General Exam Limitations: no limitations General appearance: alert, in no apparent distress Head exam: Present: atraumatic, normocephalic, normal inspection Eye exam: Present: normal appearance, PERRL, EOMI. Absent: scleral icterus, conjunctival injection, periorbital swelling ENT exam: Present: normal exam, normal oropharynx, mucous membranes moist, TM's normal bilaterally Neck exam: Present: normal inspection, full ROM. Absent: tenderness, meningismus, lymphadenopathy Respiratory exam: Present: normal lung sounds bilaterally. Absent: respiratory distress, wheezes, rales, rhonchi, stridor Cardiovascular Exam: Present: regular rate, normal rhythm, normal heart sounds. Absent: systolic murmur, diastolic murmur, rubs, gallop, clicks GI/Abdominal exam: Present: soft, normal bowel sounds. Absent: distended, tenderness, guarding, rebound, rigid Back exam: Absent: CVA tenderness (R), CVA tenderness (L) Neurological exam: Present: alert, oriented X3, CN II-XII intact Skin exam: Present: warm, dry, intact, normal color. Absent: rash Course Vital Signs 07/13/18 15:25 Temperature 98.7 F Pulse Rate 87 Respiratory 18 Rate Blood Pressure 127/77 O2 Sat by Pulse 100 Oximetry Medical Decision Making - Medical Decision Making 28-year-old female presented emergency [facility] for nausea dizziness not feeling well. Patient had 2 visits for same complaint. Patient's labs show mild leukopenia which is improving from yesterday and mild transaminitis. These are numbers are improving. Patient was hydrated given Zofran which has improved her symptoms. - Lab Data Result diagrams: 07/13/18 15:54 07/13/18 15:54 Lab Results 07/13/18 07/13/18 07/13/18 Range/Units 15:54 15:54 15:54 WBC 2.7 L (3.8-10.6) k/uL RBC 4.74 (3.80-5.40) m/uL Hgb 14.7 (11.4-16.0) gm/dL Hct 44.6 (34.0-46.0) % MCV 94.0 (80.0-100.0) fL MCH 30.9 (25.0-35.0) pg MCHC 32.9 (31.0-37.0) g/dL RDW 12.5 (11.5-15.5) % Plt Count 216 (150-450) k/uL Sodium 141 (137-145) mmol/L Potassium 3.8 (3.5-5.1) mmol/L Chloride 108 H (98-107) mmol/L Carbon Dioxide 26 (22-30) mmol/L Anion Gap 7 mmol/L BUN 7 (7-17) mg/dL Creatinine 0.80 (0.52-1.04) mg/dL Est GFR (CKD-EPI)AfAm >90 (>60 ml/min/1.73 sqM) Est GFR (CKD-EPI)NonAf >90 (>60 ml/min/1.73 sqM) Glucose 85 (74-99) mg/dL Calcium 9.2 (8.4-10.2) mg/dL Total Bilirubin 0.5 (0.2-1.3) mg/dL AST 39 H (14-36) U/L ALT 69 H (9-52) U/L Alkaline Phosphatase 69 (38-126) U/L Total Protein 7.4 (6.3-8.2) g/dL Albumin 4.1 (3.5-5.0) g/dL Lipase 117 (23-300) U/L Heterophile Antibody Negative (Negative) Disposition Clinical Impression: Dehydration, Influenza, Transaminitis Disposition: HOME SELF-CARE Condition: Stable Instructions (If sedation given, give patient instructions): Dehydration (ED) Additional Instructions: Please return to the Emergency Department if symptoms worsen or any other c oncerns. Prescriptions: Meclizine [Antivert] 25 mg PO TID PRN #15 tab PRN Reason: Vertigo Ondansetron Odt [Zofran Odt] 4 mg PO Q8HR PRN #10 tab PRN Reason: Nausea Is patient prescribed a controlled substance at d/c from ED?: No Referrals: Maurilio Rowland MD [Primary Care Provider] - 1-2 days Time of Disposition: 16:57
[2018-07-13 16:28] LABS: Potassium 3.8 mmol/L (3.5-5.1)
[2018-07-13 16:30] LABS: ALT 69 U/L (9-52); AST 39 U/L (14-36); Albumin 4.1 g/dL (3.5-5.0); Alkaline Phosphatase 69 U/L (38-126); Anion Gap 7 mmol/L; Blood Urea Nitrogen 7 mg/dL (7-17); Calcium 9.2 mg/dL (8.4-10.2); Carbon Dioxide 26 mmol/L (22-30); Chloride 108 mmol/L (98-107); Glucose 85 mg/dL (74-99); Lipase 117 U/L (23-300); Sodium 141 mmol/L (137-145); Total Bilirubin 0.5 mg/dL (0.2-1.3); Total Protein 7.4 g/dL (6.3-8.2)
[2018-07-13] MEDS: ONDANSETRON 4 MG/2 ML VIAL IVP STA ×2 (16:36→16:38)
[2018-07-13] MEDS ORDERED: ONDANSETRON ODT 4 MG TAB PO STA (16:38)
[2018-07-13] MEDS ORDERED: ONDANSETRON 4 MG/2 ML VIAL IVP STA (16:40)
[2018-07-13] MEDS ORDERED: SODIUM CHLORIDE 0.9% 1,000 ML IV ONE (16:41)
[2018-07-13 17:19] VITALS: BP 135/75; PULSE 65; RESP 16; TEMP 98.8
== END 2018-07-13 17:30 | disposition home or self-care (01) ==
LOC: EC 15:12
DX: E86.0 Dehydration (principal); J11.1 Influenza due to unidentified influenza virus with other respiratory manifestations; R74.0 Nonspecific elevation of levels of transaminase and lactic acid dehydrogenase [LDH]; D72.819 Decreased white blood cell count, unspecified; K30 Functional dyspepsia; Z83.2 Family history of diseases of the blood and blood-forming organs and certain disorders involving the immune mechanism; Z53.20 Procedure and treatment not carried out because of patient's decision for unspecified reasons
CPT/HCPCS: 36415; 80053; 83690; 85027; 86308; 99284; 96374; 96361; J2405

== ENCOUNTER 2024-01-23 09:33 | Emergency (ER) | payer OTHER ==
--- NOTE | 2024-01-23 09:56 | ED ---
Female Urogenital HPI - General Chief complaint: Vaginal Bleeding Stated complaint: Preg 6wks/Bleeding Time Seen by Provider: 01/23/24 09:38 Source: patient, RN notes reviewed Mode of arrival: ambulatory Limitations: no limitations - History of Present Illness Initial comments: This is a 33-year-old female who presents to the emergency department for vag inal bleeding in . Believes that she is 5 to 6 weeks , but is not entirely sure. States that she had an episode of bleeding 1.5 weeks ago. She went to [facility] at that time. States that she provided a urine sample and they did nothing else. She then started having spotting again today. She has mild intermittent cramps. Patient is . She is waiting on a call back from [facility] to see if she can become established with Dr. Rowell, who she has seen in prior pregnancies. MD Complaint: vaginal bleeding - Related Data Previous Rx's Medication Instructions Recorded Ibuprofen 800 mg PO Q8H PRN #60 tablet 09/15/17 Meclizine [Antivert] 25 mg PO TID PRN #15 tab 07/13/18 Ondansetron Odt [Zofran Odt] 4 mg PO Q8HR PRN #10 tab 07/13/18 Allergies Allergy/AdvReac Type Severity Reaction Status Date / Time No Known Allergies Allergy Verified 01/23/24 09:37 Review of Systems ROS Statement: Those systems with pertinent positive or pertinent negative responses have been documented in the HPI. ROS Other: All systems not noted in ROS Statement are negative. Past Medical History Past Medical History: No Reported History Additional Past Medical History / Comment(s): Obstetric History: She has had one vaginal delivery 5 lbs. 8 oz., 2 elective terminations, this is her fourth . She's had care with me since 7 weeks gestation. Blood type is O+, antibodies negative, rubella immune, treponema antibody negative, HIV nonreactive, hepatitis B negative. Abnormal 1 hour, she refused to do the 3 hour so she checks her blood sugar for 2 weeks and they were not within normal limits when she went to the maternal medicine the diagnosed with gestational diabetes and had her checking her blood sugars and following a diet. She was GBS positive. NSTs have been reactive. Baby was measuring in the 50th percentile at 35 weeks. History of Any Multi-Drug Resistant Organisms: None Reported Past Surgical History: No Surgical Hx Reported Past Anesthesia/Blood Transfusion Reactions: No Reported Reaction Past Psychological History: ADD/ADHD Smoking Status: Never smoker Past Alcohol Use History: None Reported Past Drug Use History: None Reported - Past Family History Father Family Medical History: Diabetes Mellitus Mother Family Medical History: Asthma, Blood Disorder, Hypertension General Exam Limitations: no limitations General appearance: alert, in no apparent distress Head exam: Present: atraumatic, normocephalic, normal inspection Respiratory exam: Present: normal lung sounds bilaterally. Absent: respiratory distress, wheezes, rales, rhonchi, stridor Cardiovascular Exam: Present: regular rate, normal rhythm, normal heart sounds. Absent: systolic murmur, diastolic murmur, rubs, gallop, clicks Neurological exam: Present: alert, oriented X3, CN II-XII intact Psychiatric exam: Present: normal affect, normal mood Skin exam: Present: warm, dry, intact, normal color. Absent: rash Course Vital Signs 01/23/24 01/23/24 09:35 11:31 Temperature 98.3 F 98.4 F Pulse Rate 100 93 Respiratory 20 18 Rate Blood Pressure 146/86 120/82 O2 Sat by Pulse 99 99 Oximetry Medical Decision Making - Medical Decision Making This is a 43-year-old female who presents to the emergency department for vaginal bleeding in . Was pt. sent in by a medical professional or institution? @ -No Did you speak to anyone other than the patient for history? @ -No Did you review nursing and triage notes? @ -Yes, and I agree, it is accurate with regards to the patient's symptoms. Were old charts reviewed? @ -No Differential Diagnosis? @ -Differential Vaginal Bleeding: Spontaneous , threatened , molar , ectopic , incompetent cervix, placenta previa, uterine rupture, dysfunctional uterine bleeding, hemorrhage, uterine fibroids, malignancy, coagulopathy, PID, cervicitis, adenomyosis, vaginal trauma, this is not meant to be an all- inclusive list. EKG interpreted by me (3pts min.)? @ -Not obtained X-rays interpreted by me (1pt min.)? @ -Not obtained CT interpreted by me (1pt min.)? @ -Not obtained U/S interpreted by me (1pt. min.)? @ -Obstetrics ultrasound obtained. My interpretation identifies an intraute rine gestational sac. What testing was considered but not performed? (CT, X-rays, U/S, labs)? Why? @ -None What meds were considered but not given? Why? @ -None Did you discuss the management of the patient with other professionals? @ -No Did you reconcile home meds? @ -No Was smoking cessation discussed for >3mins.? @ -No Was critical care preformed (if so, how long)? @ -No Were there social determinants of health that impacted care today? How? (Homelessness, low income, unemployed, alcoholism, drug addiction, transportation, low edu. Level, literacy, decrease access to med. care, prison, rehab)? @ -No Was there de-escalation of care discussed even if they declined? (Discuss DNR or withdrawal of care, Hospice)? @ -No What co-morbidities impacted this encounter? (DM, HTN, Smoking, COPD, CAD, Cancer, CVA, Hep., AIDS, mental health diagnosis, sleep apnea, morbid obesity)? @ - Was patient admitted / discharged? @ -Discharged. Lab work unremarkable. hCG is 10,085. She is Rh+ and no RhoGAM is indicated. Urinalysis negative for signs of infection. Obstetrics ultrasound demonstrates a single intrauterine gestational sac measuring 5 weeks 5 days. pole and cardiac activity are not identified. They advised that this could be due to early . There is also a possible subchorionic hemorrhage adjacent to the gestational sac. Findings reviewed with the patient. Advised that she will need to have her beta-hCG count repeated in 48 hours. Lab slip provided to have hCG repeated. Advised she continue trying to become established with an DIRECTOR OF SPEECH PATHOLOGY for ongoing obstetrics care. Patient discharged home in stable condition. Case discussed with ED attending Dr. Knott. Return precautions reviewed in depth, the patient is instructed to return to the emergency department with any new, worsening, or concerning symptoms. Patient verbalized understanding. Undiagnosed new problem with uncertain prognosis? @ -None Drug Therapy requiring intensive monitoring for toxicity (Heparin, Nitro, Insulin, Cardizem)? @ -None Were any procedures done? @ -None Diagnosis/symptom? @ -Threatened miscarriage Acute, or Chronic, or Acute on Chronic? @ -Acute Uncomplicated (without systemic symptoms) or Complicated (systemic symptoms)? @ -Uncomplicated Side effects of treatment? @ -None Exacerbation, Progression, or Severe Exacerbation] @ -Not applicable Poses a threat to life or bodily function? @ -Unlikely - Lab Data Result diagrams: 01/23/24 10:02 01/23/24 10:02 Lab Results 01/23/24 01/23/24 01/23/24 Range/Units 09:54 10:01 10:02 WBC 6.1 (3.8-10.6) k/uL RBC 4.60 (3.80-5.40) m/uL Hgb 14.4 (11.4-16.0) gm/dL Hct 43.0 (34.0-46.0) % MCV 93.6 (80.0-100.0) fL MCH 31.3 (25.0-35.0) pg MCHC 33.5 (31.0-37.0) g/dL RDW 13.2 (11.5-15.5) % Plt Count 264 (150-450) k/uL MPV 8.9 Neutrophils % 61 % Lymphocytes % 30 % Monocytes % 4 % Eosinophils % 3 % Basophils % 1 % Neutrophils # 3.7 (1.3-7.7) k/uL Lymphocytes # 1.9 (1.0-4.8) k/uL Monocytes # 0.2 (0-1.0) k/uL Eosinophils # 0.2 (0-0.7) k/uL Basophils # 0.0 (0-0.2) k/uL Sodium (137-145) mmol/L Potassium (3.5-5.1) mmol/L Chloride (98-107) mmol/L Carbon Dioxide (22-30) mmol/L Anion Gap mmol/L BUN (7-17) mg/dL Creatinine (0.52-1.04) mg/dL Est GFR (CKD-EPI)AfAm (>60 ml/min/1.73 sqM) Est GFR (CKD-EPI)NonAf (>60 ml/min/1.73 sqM) Glucose (74-99) mg/dL Calcium (8.4-10.2) mg/dL Total Bilirubin (0.2-1.3) mg/dL AST (14-36) U/L ALT (4-34) U/L Alkaline Phosphatase (38-126) U/L Total Protein (6.3-8.2) g/dL Albumin (3.5-5.0) g/dL HCG, Quant mIU/mL Urine Color Yellow Urine Appearance Cloudy H (Clear) Urine pH 6.0 (5.0-8.0) Ur Specific [place] 1.023 (1.001-1.035) Urine Protein Trace H (Negative) Urine Glucose (UA) Negative (Negative) Urine Ketones Negative (Negative) Urine Blood Small H (Negative) Urine Nitrite Negative (Negative) Urine Bilirubin Negative (Negative) Urine Urobilinogen <2.0 (<2.0) mg/dL Ur Leukocyte Esterase Small H (Negative) Urine RBC 2 (0-5) /hpf Urine WBC 2 (0-5) /hpf Ur Squamous Epith Cells 6 H (0-4) /hpf Urine Mucus Occasional H (None) /hpf Blood Type O Positive Blood Type Recheck O Pos Bld Type Recheck Status No 01/23/24 Range/Units 10:02 WBC (3.8-10.6) k/uL RBC (3.80-5.40) m/uL Hgb (11.4-16.0) gm/dL Hct (34.0-46.0) % MCV (80.0-100.0) fL MCH (25.0-35.0) pg MCHC (31.0-37.0) g/dL RDW (11.5-15.5) % Plt Count (150-450) k/uL MPV Neutrophils % % Lymphocytes % % Monocytes % % Eosinophils % % Basophils % % Neutrophils # (1.3-7.7) k/uL Lymphocytes # (1.0-4.8) k/uL Monocytes # (0-1.0) k/uL Eosinophils # (0-0.7) k/uL Basophils # (0-0.2) k/uL Sodium 138 (137-145) mmol/L Potassium 3.6 (3.5-5.1) mmol/L Chloride 106 (98-107) mmol/L Carbon Dioxide 21 L (22-30) mmol/L Anion Gap 11 mmol/L BUN 8 (7-17) mg/dL Creatinine 0.78 (0.52-1.04) mg/dL Est GFR (CKD-EPI)AfAm >90 (>60 ml/min/1.73 sqM) Est GFR (CKD-EPI)NonAf >90 (>60 ml/min/1.73 sqM) Glucose 116 H (74-99) mg/dL Calcium 9.8 (8.4-10.2) mg/dL Total Bilirubin 0.7 (0.2-1.3) mg/dL AST 18 (14-36) U/L ALT 13 (4-34) U/L Alkaline Phosphatase 60 (38-126) U/L Total Protein 7.9 (6.3-8.2) g/dL Albumin 4.7 (3.5-5.0) g/dL HCG, Quant 99244.4 mIU/mL Urine Color Urine Appearance (Clear) Urine pH (5.0-8.0) Ur Specific [place] (1.001-1.035) Urine Protein (Negative) Urine Glucose (UA) (Negative) Urine Ketones (Negative) Urine Blood (Negative) Urine Nitrite (Negative) Urine Bilirubin (Negative) Urine Urobilinogen (<2.0) mg/dL Ur Leukocyte Esterase (Negative) Urine RBC (0-5) /hpf Urine WBC (0-5) /hpf Ur Squamous Epith Cells (0-4) /hpf Urine Mucus (None) /hpf Blood Type Blood Type Recheck Bld Type Recheck Status - Radiology Data Radiology results: report reviewed, image reviewed Disposition Clinical Impression: Vaginal bleeding during , Threatened Disposition: HOME SELF-CARE Instructions (If sedation given, give patient instructions): Subchorionic Hemorrhage (ED) Additional Instructions: Return to the emergency department with any new, worsening, or concerning symptoms. Take the lab slip to have your hCG count repeated in 48 hours. It is currently 10,085. Continue trying to become established with DIRECTOR OF SPEECH PATHOLOGY. Is patient prescribed a controlled substance at d/c from ED?: No Referrals: None,Stated [Primary Care Provider] - 1-2 days Time of Disposition: 11:22
[2024-01-23 10:24] LABS: Appearance,Urine Cloudy (Clear); Bilirubin,Urine Negative (Negative); Blood,Urine Small (Negative); Color,Urine Yellow; Glucose,Urine (UA) Negative (Negative); Ketones,Urine Negative (Negative); Leukocyte Esterase,Urine Small (Negative); Mucus,Urine Occasional /hpf; Nitrite,Urine Negative (Negative); Protein,Urine Trace (Negative); RBC,Urine 2 /hpf (0-5); Specific Gravity,Urine 1.023 (1.001-1.035); Squamous Epithelial Cell,Urine 6 /hpf (0-4); Urobilinogen,Urine <2.0 mg/dL (<2.0); WBC,Urine 2 /hpf (0-5)
[2024-01-23 10:28] LABS: Basophils % (A) 1 %; Eosinophils # (A) 0.2 k/uL (0-0.7); Eosinophils % (A) 3 %; HGB 14.4 gm/dL (11.4-16.0); Lymphocytes # (A) 1.9 k/uL (1.0-4.8); Lymphocytes % (A) 30 %; MCH 31.3 pg (25.0-35.0); MCHC 33.5 g/dL (31.0-37.0); MCV 93.6 fL (80.0-100.0); Mean Platelet Volume 8.9; Monocytes # (A) 0.2 k/uL (0-1.0); Monocytes % (A) 4 %; Neutrophils # (A) 3.7 k/uL (1.3-7.7); Neutrophils % (A) 61 %; Platelet Count 264 k/uL (150-450); RDW 13.2 % (11.5-15.5); WBC 6.1 k/uL (3.8-10.6)
[2024-01-23 10:33] LABS: ALT 13 U/L (4-34); AST 18 U/L (14-36); African American GFR (CKD) >90 (>60 ml/min/1.73 sqM); Albumin 4.7 g/dL (3.5-5.0); Alkaline Phosphatase 60 U/L (38-126); Anion Gap 11 mmol/L; Blood Urea Nitrogen 8 mg/dL (7-17); Calcium 9.8 mg/dL (8.4-10.2); Carbon Dioxide 21 mmol/L (22-30); Chloride 106 mmol/L (98-107); Glucose 116 mg/dL (74-99); Non-African American GFR(CKD) >90 (>60 ml/min/1.73 sqM); Potassium 3.6 mmol/L (3.5-5.1); Sodium 138 mmol/L (137-145); Total Bilirubin 0.7 mg/dL (0.2-1.3); Total Protein 7.9 g/dL (6.3-8.2)
[2024-01-23 10:50] LABS: HCG,Quantitative Serum 10085.4 mIU/mL
--- NOTE | 2024-01-23 10:56 | US ---
EXAMINATION TYPE: Transabdominal DATE OF EXAM: 01/23/2024 10:33 AM COMPARISON: NONE CLINICAL INDICATION: Female, 33 years old with history of Vaginal bleeding in ; Spotting, cr amping EXAM PERFORMED: Transvaginal (TV) and Transabdominal (TA) EXAM MEASUREMENTS: GESTATIONAL AGE / DATING Physician Established: Not yet established Dates by LMP: (5 weeks/5 days) EDC: 09/19/24 Dates by First Scan: No previous this is first scan Dates by Current Scan for: (5 weeks/5 days) - MSD MATERNAL ANATOMY Uterus: 9.9 x 5.0 x 5.8cm Right Ovary: 4.4 x 2.8 x 3.0cm Left Ovary: 2.7 x 1.4 x 1.3cm Post CDS / Adnexa: appears wnl Presence of free fluid: no Presence of corpus luteal cyst: cystic lesion right ovary = 2.3 x 2.0 x 2.1cm Presence of subchorionic bleed: yes, inferior to GS = 2.5cm GESTATION / SURVEY MSD: 1.0cm (5 weeks/5 days) Yolk Sac (normal less than 6mm): 0.3cm IUP: no evidence of pole at this time Date of LMP: 12/14/23 Beta HcG (if available): Not available at this time IMPRESSION: 1. Single intrauterine gestational sac estimated 5 weeks 5 days gestation based on the mean sac diame ter. pole is not identified. Cardiac activity not identified. This could be an early and short-term follow-up and correlation with beta-hCG is recommended. 2. Suggestion of subchorionic hemorrhage adjacent to the gestational sac. [facility], , 01/23/2024 10:54 AM
[2024-01-23 11:34] VITALS: BP 120/82; PULSE 93; RESP 18; TEMP 98.4
== END 2024-01-23 11:35 | disposition home or self-care (01) ==
LOC: EC 09:33
DX: O20.0 Threatened abortion (principal); Z3A.01 Less than 8 weeks gestation of pregnancy
CPT/HCPCS: 36415; 76801; 76817; 80053; 81001; 84702; 85025; 86900; 86901; 99284

== ENCOUNTER 2024-04-09 12:26 | Emergency (ER) | payer OTHER ==
--- NOTE | 2024-04-09 13:40 | ED ---
Chest Pain HPI - General Chief Complaint: Chest Pain Stated Complaint: chest pain, 16wk preg Time Seen by Provider: 04/09/24 13:38 Source: patient, RN notes reviewed, old records reviewed Mode of arrival: ambulatory Limitations: no limitations - History of Present Illness Initial Comments: 34-year-old female presented to the ER with a chief complaint of chest discomfort. Patient states she is approximately 16 weeks gestation. She is following up with Dr. Rowell. Patient reports for the past 3 days she has been having intermittent sharp left-sided chest pain with radiation to her left upper extremity. She has no known triggers. Pain will come and stay for less than a minute. She states it starts in her chest and radiates down her left upper e xtremity then will go away. Pain is not pleuritic. No shortness of breath. She denies any dizziness, lightheadedness, nausea or vomiting during these episodes. No recent travel or calf tenderness. Patient reports yesterday she seemed to have a reduction in symptoms but today noticed frequency and intensity of pain increase. Patient denies any known cardiac history, history of DVTs or PEs. Patient denies any vaginal bleeding or abdominal pain. No recent fevers, cough, congestion, urinary complaints or peripheral edema. - Related Data Home Medications Medication Instructions Recorded Confirmed Pedi Multivit No.25/Folic Acid 2 tab PO DAILY 04/09/24 04/09/24 [Flintstones Multivit Chew Tab] Allergies Allergy/AdvReac Type Severity Reaction Status Date / Time No Known Allergies Allergy Verified 04/09/24 15:44 Review of Systems ROS Statement: Those systems with pertinent positive or pertinent negative responses have been documented in the HPI. ROS Other: All systems not noted in ROS Statement are negative. EKG Findings - EKG Comments: EKG Findings:: EKG taken at 12: 39 showing a sinus tachycardia. Inverted T waves in inferior lateral leads. 0.[address] depression in inferior leads. Ventricular rate 114, ME interval 122, QRS duration 93, QT/QTc 304/372. Past Medical History Past Medical History: No Reported History Additional Past Medical History / Comment(s): Obstetric History: She has had one vaginal delivery 5 lbs. 8 oz., 2 elective terminations, this is her fourth . She's had care with me since 7 weeks gestation. Blood type is O+, antibodies negative, rubella immune, treponema antibody negative, HIV nonreactive, hepatitis B negative. Abnormal 1 hour, she refused to do the 3 hour so she checks her blood sugar for 2 weeks and they were not within normal limits when she went to the maternal medicine the diagnosed with gestational diabetes and had her checking her blood sugars and following a diet. She was GBS positive. NSTs have been reactive. Baby was measuring in the 50th percentile at 35 weeks. History of Any Multi-Drug Resistant Organisms: None Reported Past Surgical History: No Surgical Hx Reported Past Anesthesia/Blood Transfusion Reactions: No Reported Reaction Past Psychological History: ADD/ADHD Smoking Status: Never smoker Past Alcohol Use History: None Reported Past Drug Use History: None Reported - Past Family History Father Family Medical History: Diabetes Mellitus Mother Family Medical History: Asthma, Blood Disorder, Hypertension General Exam Limitations: no limitations General appearance: alert, in no apparent distress Respiratory exam: Present: normal lung sounds bilaterally. Absent: respiratory distress, wheezes, rales, rhonchi, stridor Cardiovascular Exam: Present: normal rhythm, tachycardia, normal heart sounds Neurological exam: Present: alert, oriented X3, CN II-XII intact Skin exam: Present: warm, dry, intact, normal color. Absent: rash Course Vital Signs 04/09/24 04/09/24 04/09/24 12:32 14:42 16:13 Temperature 98.9 F 98.7 F 98.1 F Pulse Rate 126 H 97 96 Respiratory 18 18 22 Rate Blood Pressure 130/81 111/64 125/75 O2 Sat by Pulse 97 100 100 Oximetry Chest Pain MDM - MDM Was pt. sent in by a medical professional or institution (, PA, CONTRACT COORDINATOR, urgent care, hospital, or shelter...) When possible be specific @ -No Did you speak to anyone other than the patient for history (EMS, parent, family, police, friend...)? What history was obtained from this source @ -No Did you review nursing and triage notes (agree or disagree)? Why? @ -I reviewed and agree with nursing and triage notes Were old charts reviewed (outside hosp., previous admission, EMS record, old EKG, old radiological studies, urgent care reports/EKG's, shelter records)? Report findings @ -No old charts were reviewed Differential Diagnosis (chest pain, altered mental status, abdominal pain women, abdominal pain men, vaginal bleeding, weakness, fever, dyspnea, syncope, headache, dizziness, GI bleed, back pain, seizure, CVA, palpatations, mental health, musculoskeletal)? @ -Differential Chest Pain:Stable Angina, Unstable Angina, STEMI, NSTEMI Aortic Dissection, Pneumothorax, Musculoskeletal, Esophageal Spasm GERD, Cholecystitis, Pancreatitis, Zoster, this is not meant to be an all-inclusive list. EKG interpreted by me (3pts min.). @ -As above X-rays interpreted by me (1pt min.). @ -CXR interpreted me negative for acute cardiopulmonary process. CT interpreted by me (1pt min.). @ -None done U/S interpreted by me (1pt. min.). @ -None done What testing was considered but not performed or refused? (CT, X-rays, U/S, labs)? Why? @ -None What meds were considered but not given or refused? Why? @ -None Did you discuss the management of the patient with other professionals (professionals i.e. , PA, CONTRACT COORDINATOR, lab, RT, psych nurse, transition social worker, non acoustic operator, teacher, chief business officer, rn case manager)? Give summary @ -No Was smoking cessation discussed for >3mins.? @ -No Was critical care preformed (if so, how long)? @ -No Were there social determinants of health that impacted care today? How? (Homelessness, low income, unemployed, alcoholism, drug addiction, transport ation, low edu. Level, literacy, decrease access to med. care, [facility], rehab)? @ -No Was there de-escalation of care discussed even if they declined (Discuss DNR or withdrawal of care, Hospice)? DNR status @ -No What co-morbidities impacted this encounter? (DM, HTN, Smoking, COPD, CAD, Cancer, CVA, ARF, Chemo, Hep., AIDS, mental health diagnosis, sleep apnea, morbid obesity)? @ - Was patient admitted / discharged? Hospital course, mention meds given and route, prescriptions, significant lab abnormalities, going to OR and other pertinent info. @ -Discharge. 34-year-old female approximately 16 weeks gestation presenting to the ER with a chief complaint of chest discomfort. History and physical exam completed. Patient is tachycardic upon arrival at 126 bpm vitals otherwise stable. Exam is unremarkable. Patient has 2 small children in the room during examination. Cardiac workup will be obtained. CBC unremarkable. Troponin undetectable. Urinalysis is contaminated with 10 epithelial cells. Chest x-ray negative. Patient given IV fluids in the ER. Upon reevaluation, patient is extremely eager for discharge and refused second troponin. Patient is in no signs of acute distress. Patient reports no bouts of chest discomfort or shortness of breath while in the ER. Strict return parameters discussed. Patient discharged in stable condition with follow-up to PCP. Patient verbally expressed understanding and agreement with care plan. Case discussed with ED attending, . Undiagnosed new problem with uncertain prognosis? @ -No Drug Therapy requiring intensive monitoring for toxicity (Heparin, Nitro, Insulin, Cardizem)? @ -No Were any procedures done? @ -No Diagnosis/symptom? @ -Atypical chest pain Acute, or Chronic, or Acute on Chronic? @ -Acute Uncomplicated (without systemic symptoms) or Complicated (systemic symptoms)? @ -Uncomplicated Side effects of treatment? @ -No Exacerbation, Progression, or Severe Exacerbation? @ -No Poses a threat to life or bodily function? How? (Chest pain, [place], [place], pneumonia, PE, COPD, DKA, ARF, appy, cholecystitis, CVA, Diverticulitis, Homicidal, Suicidal, threat to staff... and all critical care pts) @ -No Disposition Clinical Impression: Atypical chest pain Disposition: HOME SELF-CARE Condition: Stable Additional Instructions: Follow-up with [facility]. Return to the ER for new or worsening concerns. Is patient prescribed a controlled substance at d/c from ED?: No Referrals: [facility] [NON-STAFF] - 1-2 days [facility] [NON-STAFF] - 1-2 days None,Stated [Primary Care Provider] - 1-2 days Forms: Area PCPs Time of Disposition: 16:08
[2024-04-09 13:51] LABS: Basophils % (A) 0 %; Eosinophils # (A) 0.3 k/uL (0-0.7); Eosinophils % (A) 3 %; HCT 38.1 % (34.0-46.0); HGB 12.8 gm/dL (11.4-16.0); Lymphocytes # (A) 1.6 k/uL (1.0-4.8); Lymphocytes % (A) 18 %; MCHC 33.7 g/dL (31.0-37.0); MCV 92.1 fL (80.0-100.0); Mean Platelet Volume 9.2; Monocytes # (A) 0.3 k/uL (0-1.0); Monocytes % (A) 4 %; Neutrophils # (A) 6.2 k/uL (1.3-7.7); Neutrophils % (A) 73 %; Platelet Count 216 k/uL (150-450); RBC 4.14 m/uL (3.80-5.40); WBC 8.5 k/uL (3.8-10.6)
[2024-04-09 14:01] LABS: INR 0.9 (<1.2); Partial Thromboplastin Time 25.8 sec (22.0-30.0); Prothrombin Time 10.3 sec (10.0-12.5)
[2024-04-09 14:08] LABS: ALT 12 U/L (4-34); AST 17 U/L (14-36); African American GFR (CKD) >90 (>60 ml/min/1.73 sqM); Albumin 3.9 g/dL (3.5-5.0); Alkaline Phosphatase 60 U/L (38-126); Anion Gap 9 mmol/L; Blood Urea Nitrogen 7 mg/dL (7-17); Calcium 9.4 mg/dL (8.4-10.2); Carbon Dioxide 21 mmol/L (22-30); Chloride 105 mmol/L (98-107); Glucose 114 mg/dL (74-99); Magnesium 1.4 mg/dL (1.6-2.3); Non-African American GFR(CKD) >90 (>60 ml/min/1.73 sqM); Potassium 3.8 mmol/L (3.5-5.1); Sodium 135 mmol/L (137-145); Total Bilirubin 0.4 mg/dL (0.2-1.3); Total Protein 6.9 g/dL (6.3-8.2)
--- NOTE | 2024-04-09 14:19 | XR ---
EXAMINATION TYPE: XR chest 2V DATE OF EXAM: 04/09/2024 1:55 PM COMPARISON: Chest radiographs from 07/12/2018 CLINICAL INDICATION: Female, 34 years old with history of Chest Pain, , TECHNIQUE: PA and lateral views FINDINGS: The cardiomediastinal silhouette, aorta, and pulmonary vasculature are within normal limits. Hazy den sities in the lower lungs relating to overlying soft tissue. Otherwise, lungs and pleural spaces are clear. IMPRESSION: No acute cardiopulmonary process. [facility], , 04/09/2024 2:17 PM
[2024-04-09] MEDS: SODIUM CHLORIDE 0.9% 1,000 ML IV STA (14:36)
[2024-04-09 16:02] LABS: Appearance,Urine Cloudy (Clear); Bilirubin,Urine Negative (Negative); Blood,Urine Trace (Negative); Color,Urine Colorless; Glucose,Urine (UA) Negative (Negative); Hyaline Casts,Urine 1 /lpf (0-2); Ketones,Urine Negative (Negative); Leukocyte Esterase,Urine Large (Negative); Mucus,Urine Rare /hpf; Nitrite,Urine Negative (Negative); Protein,Urine Negative (Negative); RBC,Urine 4 /hpf (0-5); Specific Gravity,Urine 1.013 (1.001-1.035); Squamous Epithelial Cell,Urine 10 /hpf (0-4); Urobilinogen,Urine <2.0 mg/dL (<2.0); WBC,Urine 6 /hpf (0-5)
[2024-04-09 16:28] VITALS: BP 125/75; PULSE 96; RESP 22; TEMP 98.1
== END 2024-04-09 16:30 | disposition home or self-care (01) ==
LOC: EC 12:26
DX: O26.892 Other specified pregnancy related conditions, second trimester (principal); R07.89 Other chest pain; R00.0 Tachycardia, unspecified; Z3A.16 16 weeks gestation of pregnancy
CPT/HCPCS: 36415; 71046; 80053; 81001; 83735; 84484; 85025; 85610; 85730; 93005; 96360; 99284

== ENCOUNTER → 2024-07-03 | Outpatient (CLI) | payer OTHER ==
[2024-07-03 15:10] LABS: HCT 36.5 % (37.2-46.3); HGB 12.2 g/dL (12.0-15.0); MCH 31.6 pg (27.0-32.0); MCHC 33.4 g/dL (32.0-37.0); MCV 94.6 FL (80.0-97.0); Mean Platelet Volume 12.3 FL (9.5-12.2); NRBC Per 100 WBC 0 X 10*3/uL (0.00-0.01); Platelet Count 203 X 10*3/uL (140-440); RBC 3.86 X 10*6/uL (4.10-5.20); RDW 12.8 % (11.5-14.5); WBC 8.59 X 10*3/uL (4.50-10.00)
== END | disposition home or self-care (01) ==
LOC: LABWHC1 09:23
PROVIDERS: ATTEND Obstetrics & Gynecology
DX: Z36.9 Encounter for antenatal screening, unspecified (principal)
CPT/HCPCS: 36415; 82950; 85027

== ENCOUNTER 2024-08-05 01:42 | Outpatient (CLI) | payer OTHER ==
[2024-08-05 02:36] VITALS: BP 133/73; PULSE 97; RESP 16; TEMP 96.9
--- NOTE | 2024-08-31 11:35 | P.MSEPDOC ---
Presenting Problems - Arrival Data Date of Arrival on Unit: 08/05/24 Time of Arrival on Unit: 01:42 Mode of Transport: Ambulatory - Complaint OB-Reason for Admission/Chief Complaint: Pain Comment: pt. presents to triage due to low superpubic pain only with movement pt. rates 10/10 but only with movement, pt. states it started couple hours ago around 8pm tonight, pt. states she think she over did it yesturday, pt did alot of house work and cleaning, pt. also states she didnt drink alot of water yesturday only about 3 bottles of water. Medical History - Information : 3 Para: 2 Term: 2 : 0 Abortions: Spontaneous or Elective: 0 Number of Living Children: 2 - Gestational Age Gestational Age by RUTH (wks/days): 33 Weeks and 4 Days - History Complications: GDM Review of Systems - Review of Systems Constitutional: No problems Breast: No problems ENT: No problems Cardiovascular: No problems Respiratory: No problems Gastrointestinal: No problems Genitourinary: No problems Musculoskeletal: No problems Neurological: No problems Skin: No problems Vital Signs - Temperature Temperature: 96.9 F Temperature Source: Temporal Artery Scan - Pulse Pulse Oximetery Pulse Rate: 97 Pulse Assessment Method: Pulse Oximetry - Respirations Respiratory Rate: 16 Oxygen Delivery Method: Standby O2 Sat by Pulse Oximetry: 100 - Blood Pressure Right Arm Blood Pressure: 133/73 Blood Pressure Mean: 93 Blood Pressure Source: Automatic Cuff Medical Screen Scoring - Cervical Exam Membranes: Intact - Uterine Contractions Intensity: Absent - Assessment - Baby A Baseline FHR: 145 Heart Rate - NICHD Category: Category I (Normal) NST: Reactive Physician Notification - Physician Notified Physician Notified Date: 08/05/24 Physician Notified Time: 02:10 Physician: Lopez Scruggs Order Received: No - Notification Comment Comment: Orders to discharge home. Maternal Triage Index - Maternal Triage Index Presenting for scheduled procedure w/no complaint: No - Stat/Priority 1 Stat Priority 1: No - Urgent/Priority 2 Urgent Priority 2: Yes Provider Notified: Lopez Scruggs Provider Notified Time: 02:10 Criteria Met for Priority 2: pt. presents to triage due to low superpubic pain only with movement pt. rates 10/10 but only with movement, pt. states it started couple hours ago around 8pm tonight, pt. states she think she over did it yesturday, pt did alot of house work and cleaning, pt. also states she didnt drink alot of water yesturday only about 3 bottles of water. Disposition - Disposition OB Disposition: Discharge to home Discharge Date: 08/05/24 Discharge Time: 02:10 I agree with the RN Medical Screening Exam: Yes Physician's MSE Comment: I have neither seen nor examined the patient. Case reviewed; plan agreed upon as documented in EMR&OBIX.: Yes Diagnosis: RELATED CONDITIONS, UNSPECIFIED, THIRD TRIMESTER
== END 2024-08-05 02:10 | disposition home or self-care (01) ==
LOC: FBPOP 01:42
PROVIDERS: ATTEND Obstetrics & Gynecology
DX: O26.893 Other specified pregnancy related conditions, third trimester (principal); Z3A.33 33 weeks gestation of pregnancy
CPT/HCPCS: 59025; G0463; 99213

== ENCOUNTER 2024-09-03 11:17 | Outpatient (CLI) | payer OTHER ==
[2024-09-03 11:49] VITALS: BP 122/63; PULSE 96; RESP 18; TEMP 98
--- NOTE | 2024-10-21 10:20 | P.MSEPDOC ---
Presenting Problems - Arrival Data Date of Arrival on Unit: 09/03/24 Time of Arrival on Unit: 11:17 Mode of Transport: Ambulatory - Complaint OB-Reason for Admission/Chief Complaint: Rule Out SROM Comment: Pt is a with RUTH 09/19/24 here at 37.5 weeks of gestation d/t a recommendation from her diabetes counselor to get check out for potential ROM secondary to increased vaginal "wetness" over the last 3-4 days. Pt reported that she believes it is discharge but that the counselor strongly recommended she come into the hospital to be assessed. Pt denies complications with the , minus the GDM, or other concerns at this time. Medical History - Information : 5 Para: 2 Term: 2 : 0 Abortions: Spontaneous or Elective: 2 Number of Living Children: 2 - Gestational Age Gestational Age by RUTH (wks/days): 37 Weeks and 5 Days - History Complications: GDM Review of Systems - Review of Systems Constitutional: No problems Breast: No problems ENT: No problems Cardiovascular: No problems Respiratory: No problems Gastrointestinal: No problems Genitourinary: No problems Musculoskeletal: No problems Neurological: No problems Skin: No problems Vital Signs - Temperature Temperature: 98.0 F Temperature Source: Temporal Artery Scan - Pulse Right Sitting Pulse Oximetery Pulse Rate: 96 Pulse Assessment Method: Pulse Oximetry - Respirations Respiratory Rate: 18 Oxygen Delivery Method: Room Air O2 Sat by Pulse Oximetry: 100 - Blood Pressure Right Arm Sitting Blood Pressure: 122/63 Blood Pressure Mean: 82 Blood Pressure Source: Automatic Cuff Medical Screen Scoring - Cervical Exam Membranes: Intact - Assessment - Baby A Baseline FHR: 150 Heart Rate - NICHD Category: Category II (Indeterminate) NST: Reactive Physician Notification - Physician Notified Physician Notified Date: 09/03/24 Physician Notified Time: 11:51 Physician: Ingris Rowell New Order Received: Yes - Notification Comment Comment: Dr. Rowell returned phone call, report given including maternal and status. Orders to D/C pt at this time, will follow-up in the office at her regularly scheduled appt tomorrow 09/04/24. Orders read back and confirmed. RN to discuss POC with pt. Maternal Triage Index - Maternal Triage Index Presenting for scheduled procedure w/no complaint: No - Stat/Priority 1 Stat Priority 1: No - Urgent/Priority 2 Urgent Priority 2: No - Prompt/Priority 3 Prompt Priority 3: No - Non-Urgent/Priority 4 Non-Urgent Priority 4: Yes Criteria Met for Priority 4: Pt is a with RUTH 09/19/24 here at 37.5 weeks of gestation d/t a recommendation from her diabetes counselor to get check out for potential ROM secondary to increased vaginal "wetness" over the last 3-4 days. Pt reported that she believes it is discharge but that the counselor strongly recommended she come into the hospital to be assessed. Pt denies complications with the , minus the GDM, or other concerns at this time. Disposition - Disposition OB Disposition: Discharge to home Discharge Date: 09/03/24 Discharge Time: 12:06 I agree with the RN Medical Screening Exam: Yes Case reviewed; plan agreed upon as documented in EMR&OBIX.: Yes Diagnosis: FALSE LABOR AT OR AFTER 37 COMPLETED WEEKS OF GESTATION
== END 2024-09-03 12:06 | disposition home or self-care (01) ==
LOC: FBPOP 11:17
PROVIDERS: ATTEND Obstetrics & Gynecology
DX: O47.1 False labor at or after 37 completed weeks of gestation (principal); Z3A.37 37 weeks gestation of pregnancy
CPT/HCPCS: 59025; 84112; G0463; 99213

== ENCOUNTER 2024-09-17 06:00 | Inpatient (IN) | payer OTHER ==
[2024-09-17] MEDS ORDERED: OXYTOCIN 10 UNIT/ML 1 ML VIAL IM PRN (06:38)
[2024-09-17] MEDS ORDERED: CARBOPROST TROMETHAMINE 250 MCG/ML 1 ML AMP IM PRN (06:38)
[2024-09-17] MEDS ORDERED: TRANEXAMIC 1,000 MG/100ML-NACL 1,000 MG in EMPTY BAG 1 BAG IV PRN (06:38)
[2024-09-17] MEDS ORDERED: TERBUTALINE 1 MG/ML VIAL SQ PRN (06:38)
[2024-09-17] MEDS ORDERED: miSOPROStoL 200 MCG TAB RECTAL PRN (06:38)
[2024-09-17] MEDS ORDERED: LIDOCAINE 0.5% (PF) 5 MG/ML (50 ML SDV) SQ PRN (06:38)
[2024-09-17] MEDS ORDERED: miSOPROStoL 200 MCG TAB PO PRN (06:38)
[2024-09-17] MEDS ORDERED: METHYLERGONOVINE 0.2 MG/ML 1 ML AMP IM PRN (06:38)
[2024-09-17] MEDS: LACTATED RINGERS 1,000 ML IV SCH (06:56)
[2024-09-17 06:59] LABS: Glucose,Whole Blood 86 mg/dL (70-110)
[2024-09-17] MEDS: AMPICILLIN 2,000 MG in SODIUM CHLORIDE 0.9% 100 ML IVPB STA (07:03)
[2024-09-17] MEDS: OXYTOCIN 30 UNITS/500 ML NS 30 UNIT in SALINE 1 500ML.BAG IV SCH (07:05)
[2024-09-17 07:17] LABS: Basophils # (A) 0.02 10*3/uL (0.00-0.10); Basophils % (A) 0.2 %; Eosinophils # (A) 0.14 10*3/uL (0.04-0.35); Eosinophils % (A) 1.7 %; HCT 36.1 % (37.2-46.3); Lymphocytes # (A) 1.71 10*3/uL (0.90-5.00); Lymphocytes % (A) 20.2 %; MCH 30.5 pg (27.0-32.0); MCHC 33.2 g/dL (32.0-37.0); MCV 91.6 fL (80.0-97.0); Mean Platelet Volume 11.9 fL (9.5-12.2); Monocytes # (A) 0.79 10*3/uL (0.20-1.00); Monocytes % (A) 9.3 %; Neutrophils # (A) 5.68 10*3/uL (1.80-7.70); Neutrophils % (A) 67.2 %; Platelet Count 185 10*3/uL (140-440); RBC 3.94 10*6/uL (4.10-5.20); RDW 12.9 % (11.5-14.5); WBC 8.46 10*3/uL (4.50-10.00)
--- NOTE | 2024-09-17 08:37 | P.HPOB ---
History of Present Illness H&P Date: 09/17/24 Chief Complaint: IUP at 39-5/7 weeks, GDM This is a 34-year-old 5 para 2-0-1-2 that presents to labor and delivery at 39-5/7 weeks for scheduled induction of labor secondary to a diagnosis of gestational diabetes. Patient has been receiving routine care with Dr. Rowell. Patient notes good movement occasional contractions no vaginal bleeding or loss of fluid. On blood work this patient is a blood type of O+, rubella status immune, hepatitis B surface engine negative, HIV negative, RPR nonreactive, hepatitis C nonreactive, good beta strep culture was positive. Review of Systems Constitutional: Denies chills, Denies fatigue, Denies fever Ears, nose, mouth and throat: Denies headache Cardiovascular: Reports leg edema Respiratory: Denies dyspnea Gastrointestinal: Denies constipation, Denies diarrhea, Denies nausea, Denies vomiting Genitourinary: Reports Past Medical History Past Medical History: No Reported History Additional Past Medical History / Comment(s): GDM History of Any Multi-Drug Resistant Organisms: None Reported Past Surgical History: No Surgical Hx Reported Past Anesthesia/Blood Transfusion Reactions: No Reported Reaction Past Psychological History: ADD/ADHD Smoking Status: Never smoker Past Alcohol Use History: None Reported Past Drug Use History: None Reported - Past Family History Father Family Medical History: Diabetes Mellitus Mother Family Medical History: Asthma, Blood Disorder, Hypertension Medications and Allergies Home Medications Medication Instructions Recorded Confirmed Type No Known Home Medications 09/03/24 09/03/24 History Allergies Allergy/AdvReac Type Severity Reaction Status Date / Time No Known Allergies Allergy Verified 09/03/24 11:36 Exam Osteopathic Statement: *. No significant issues noted on an osteopathic structural exam other than those noted in the History and Physical/Consult. Vital Signs Temp Pulse Resp BP Pulse Ox 09/17/24 06:34 97.2 F L 89 16 130/74 100 Intake and Output 09/16/24 09/17/24 09/17/24 22:59 06:59 14:59 Other: Weight 116.12 kg Targeted physical exam is performed this date in general this a well-nourished well-developed female in no acute distress, breathing is nonlabored, abdomen is noted to be gravid, on cervical exam she is 4/70/-2 station amniotomy is performed and clear fluid is obtained. heart tones are noted to be ca tegory 1 and she is fela irregularly. Results Result Diagrams: 09/17/24 06:50 Abnormal Lab Results - Last 24 Hours (Table) 09/17/24 Range/Units 06:50 RBC 3.94 L (4.10-5.20) 10*6/uL Hct 36.1 L (37.2-46.3) % Immature Gran # 0.12 H (0.00-0.04) 10*3/uL Assessment and Plan (1) Term Current Visit: Yes Status: Acute Code(s): Z34.90 - ENCNTR FOR SUPRVSN OF NORMAL , UNSP, UNSP TRIMESTER SNOMED Code(s): 86349493 (2) Positive GBS test Current Visit: Yes Status: Acute Code(s): B95.1 - STREPTOCOCCUS, GROUP B, CAUSING DISEASES CLASSD ELSR SNOMED Code(s): 200211922 (3) Gestational diabetes mellitus, class A1 Current Visit: No Status: Resolved Code(s): O24.410 - GESTATIONAL DIABETES MELLITUS IN , DIET CONTROLLED SNOMED Code(s): 73993992 Plan: 34-year-old 5 para 2-0-1-2 at 39-5/7 weeks that presents to labor and delivery for induction of labor, secondary to gestational diabetes diagnosis, diet-controlled. Patient is admitted and Pitocin induction of labor is begun. Amniotomy was performed and clear fluid was obtained. Patient does request epidural for analgesia. Anticipate spontaneous vaginal delivery later this morning.
[2024-09-17] MEDS ORDERED: SODIUM CHLORIDE 0.9% 250 ML BAG ONE (09:28)
[2024-09-17] MEDS ORDERED: fentaNYL (PF) 50 MCG/ML 5 ML AMP ONE (09:28)
[2024-09-17] MEDS ORDERED: ROPIVACAINE 5 MG/ML 30 ML VIAL ONE (09:28)
[2024-09-17] MEDS ORDERED: diphenhydrAMINE 25 MG CAP PO PRN (11:41)
[2024-09-17] MEDS ORDERED: SIMETHICONE 80 MG CHEWABLE PO PRN (11:41)
[2024-09-17] MEDS ORDERED: diphenhydrAMINE 50 MG/ML 1 ML VIAL IVP PRN ×2 (11:41)
[2024-09-17] MEDS ORDERED: diphenhydrAMINE 50 MG CAP PO PRN (11:41)
[2024-09-17] MEDS ORDERED: ZOLPIDEM 5 MG TAB PO PRN (11:41)
[2024-09-17] MEDS ORDERED: OXYTOCIN 30 UNITS/500 ML NS 30 UNIT in SALINE 1 500ML.BAG IV SCH (11:45)
[2024-09-17] MEDS: BENZOCAINE/MENTHOL SPRAY 1 GM/SPRAY AEROSOL TOPICAL PRN (12:52)
[2024-09-17] MEDS: ROPIVACAINE 225 MG, fentaNYL (PF). 450 MCG in SODIUM CHLORIDE 0.9% 171 ML EPIDURAL ONE (13:25)
[2024-09-17] MEDS: IBUPROFEN 800 MG TAB PO PRN (17:27)
--- NOTE | 2024-09-17 17:53 | P.PROBDLV ---
Vaginal Delivery Note - . Vaginal Delivery Note: Date of service 09/17/2024 Findings viable female delivered at 1118, weight of 6 pounds 1.5 ounces This is a 34-year-old 5 para 2-0-2-2 at 39-5/7 weeks that presents for induction of labor. Patient is admitted and Pitocin induction of labor has begun. Patient underwent amniotomy and clear fluid was obtained. Patient made progress through labor eventually becoming uncomfortable and requesting epidural. Epidural was placed without difficulty by the anesthesia department. Patient progressed to complete began pushing and had a normal spontaneous vaginal delivery of a viable female infant at 1118, weight of 6 pounds 1.5 ounces, Apgars of 9 and 9 at 1 and 5 minutes respectively. Spontaneous cry was noted at . After 2-minute delay the umbilical cord was doubly clamped and cut. The placenta was delivered spontaneously intact with a three-vessel cord. No vaginal lacerations were appreciated after delivery. All counts noted be correct x 2. Patient and infant tolerated delivery well. Estimated blood loss 100 cc
[2024-09-17] MEDS: SENNOSIDES-DOCUSATE SODIUM 1 EACH TAB PO SCH (19:51)
[2024-09-17] MEDS: ACETAMINOPHEN TAB 500 MG TAB PO PRN (20:33)
[2024-09-17] MEDS: AMPICILLIN 1,000 MG in SODIUM CHLORIDE 0.9% 50 ML IVPB SCH (20:48)
[2024-09-18 06:31] LABS: Basophils # (A) 0.04 10*3/uL (0.00-0.10); Basophils % (A) 0.4 %; Eosinophils # (A) 0.16 10*3/uL (0.04-0.35); Eosinophils % (A) 1.7 %; HCT 34.2 % (37.2-46.3); HGB 11.4 g/dL (12.0-15.0); Lymphocytes # (A) 1.79 10*3/uL (0.90-5.00); Lymphocytes % (A) 19.5 %; MCH 30.6 pg (27.0-32.0); MCHC 33.3 g/dL (32.0-37.0); MCV 91.9 fL (80.0-97.0); Mean Platelet Volume 11.7 fL (9.5-12.2); Monocytes # (A) 0.77 10*3/uL (0.20-1.00); Monocytes % (A) 8.4 %; Neutrophils # (A) 6.32 10*3/uL (1.80-7.70); Neutrophils % (A) 69.1 %; Platelet Count 171 10*3/uL (140-440); RBC 3.72 10*6/uL (4.10-5.20); WBC 9.16 10*3/uL (4.50-10.00)
--- NOTE | 2024-09-18 08:09 | P.DS ---
Providers Date of admission: 09/17/24 06:11 Expected date of discharge: 09/18/24 Attending physician: Brittani Figueroa Primary care physician: Stated None - Discharge Diagnosis(es) (1) Term Current Visit: Yes Status: Acute (2) Positive GBS test Current Visit: Yes Status: Acute (3) Gestational diabetes mellitus, class A1 Current Visit: No Status: Resolved (4) Normal vaginal delivery Current Visit: No Status: Acute Hospital Course: This is a 34-year-old 5 now para 3-0-2-3 that presented to labor and delivery at 39-5/7 weeks for scheduled induction of labor. Patient had been receiving routine care with a diagnosis of gestational diabetes. For full details in this patient please see dictated history and physical. Patient was admitted to labor and delivery and Pitocin induction of labor was begun. Patient underwent amniotomy and clear fluid was obtained. Patient progressed to labor becoming uncomfortable and requesting epidural. Epidural was placed without difficulty by the anesthesia department. Patient progressed to complete began pushing and had a normal spontaneous vaginal delivery of a viable female i nfant at 1118, weight of 6 pounds 1.5 ounces. No vaginal lacerations were appreciated after delivery. Patient's course has been uneventful. In this day #1 she is ambulating and voiding without difficulty. She is tolerating regular diet without nausea or vomiting. She states her lochia is moderate. She denies concerns, and would like discharge home. Patient did have a prior urinary tract infection after her last delivery and is requesting prophylactic antibiotics. Prescription is written for Keflex 500 mg 1 p.o. twice daily for 7 days in addition prescription for ibuprofen 600 mg 1 every 6 hours as needed for pain. Patient Condition at Discharge: Good Plan - Discharge Summary New Discharge Prescriptions: No Action No Known Home Medications Discharge Medication List No Known Home Medications 09/03/24 [History] Follow up Appointment(s)/Referral(s): Ingris Rowell DO [Doctor of Osteopathic Medicine] - 6 Weeks Patient Instructions/Handouts: Vaginal Delivery (DC), Vaginal Delivery (GEN) Activity/Diet/Wound Care/Special Instructions: No tub baths or intercourse until 6 weeks . Prescription for ibuprofen 600 mg to be taken every 6 hours as needed for pain. Routine postp artum check at 6 weeks. Should she have any concerns prior to this appointment she is urged to call the office. Discharge Disposition: HOME SELF-CARE
[2024-09-18 08:32] VITALS: BP 133/70; PULSE 83; RESP 14; TEMP 97.8
== END 2024-09-18 14:10 | disposition home or self-care (01) | DRG 560 ==
LOC: 4FBP 06:11
PROVIDERS: ADMIT Obstetrics & Gynecology Obstetrics; ATTEND Obstetrics & Gynecology Obstetrics
PROC: 10907ZC Drainage of Amniotic Fluid, Therapeutic from Products of Conception, Via Natural or Artificial Opening (ICD-10-PCS; principal; 2024-09-17)
PROC: 10E0XZZ Delivery of Products of Conception, External Approach (ICD-10-PCS; principal; 2024-09-17)
PROC: 3E033VJ Introduction of Other Hormone into Peripheral Vein, Percutaneous Approach (ICD-10-PCS; principal; 2024-09-17)
DX: O24.420 Gestational diabetes mellitus in childbirth, diet controlled (principal); O99.824 Streptococcus B carrier state complicating childbirth; Z37.0 Single live birth; Z3A.39 39 weeks gestation of pregnancy; Z87.440 Personal history of urinary (tract) infections
CPT/HCPCS: 85025; 86850; 86900; 86901

== ENCOUNTER → 2024-12-04 | Outpatient (CLI) | payer OTHER ==
[2024-12-04 15:26] LABS: Basophils # (A) 0.04 X 10*3/uL (0.00-0.10); Basophils % (A) 0.7 %; Eosinophils # (A) 0.11 X 10*3/uL (0.04-0.35); Eosinophils % (A) 2.0 %; HCT 40.6 % (37.2-46.3); HGB 12.9 g/dL (12.0-15.0); Immature Grans, Automated 0.50 %; Lymphocytes # (A) 1.71 X 10*3/uL (0.90-5.00); Lymphocytes % (A) 30.5 %; MCH 29.4 pg (27.0-32.0); MCHC 31.8 g/dL (32.0-37.0); MCV 92.5 FL (80.0-97.0); Monocytes # (A) 0.41 X 10*3/uL (0.20-1.00); Monocytes % (A) 7.3 %; NRBC Per 100 WBC 0 X 10*3/uL (0.00-0.01); Neutrophils # (A) 3.30 X 10*3/uL (1.80-7.70); Neutrophils % (A) 59.0 %; Platelet Count 253 X 10*3/uL (140-440); RBC 4.39 X 10*6/uL (4.10-5.20); RDW 13.1 % (11.5-14.5); WBC 5.60 X 10*3/uL (4.50-10.00)
[2024-12-04 16:37] LABS: HCG,Quantitative Serum <3.0 mIU/mL (0.0-6.0)
== END | disposition home or self-care (01) ==
LOC: LABWHC1 09:37
PROVIDERS: ATTEND Obstetrics & Gynecology
DX: N93.9 Abnormal uterine and vaginal bleeding, unspecified (principal)
CPT/HCPCS: 36415; 84443; 84702; 85025